=== PATIENT | female | born 1945 | race Caucasian/White ===

== ENCOUNTER → 2016-06-09 | Outpatient (CLI) | payer OTHER ==
[~2016-06-09] MED LIST: ATOR-24 PO; CETI10TA84 PO; CHOL2000 PO; CYAN10005 PO; INSDGI SC; INSUINJ14 SQ; LISI-725 PO; MAGN400T6 PO; METO1TAB31 PO; NXM/40 PO; RALO60TA12 PO
[2016-06-09 12:50] LABS: ALT/SGPT 27 U/L (12-78); BLOOD UREA NITROGEN 11 mg/dl (7-18); BUN/CREATININE RATIO 16.2 (10-20); CALCIUM 8.7 mg/dl (8.5-10.1); CARBON DIOXIDE 25 mmol/L (21-32); CHLORIDE 106 mmol/L (98-107); CREATININE 0.69 mg/dl (0.60-1.20); GLUCOSE 97 mg/dl (70-99); POTASSIUM 3.9 mmol/L (3.5-5.1); SODIUM 143 mmol/L (136-145)
[2016-06-09 12:54] LABS: ALB/GLOB RATIO 0.9 (0.9-2); ALKALINE PHOSPHATASE 92 U/L (45-117); AST/SGOT 20 U/L (15-37)
[2016-06-09 13:00] LABS: ESTIMATED AVERAGE GLUCOSE 197 mg/dl; HA1C FLAG Normal (Normal)
== END | disposition home or self-care (01) ==
LOC: C.LABPVFM 08:32
PROVIDERS: ATTEND Family Medicine
DX: E11.9 Type 2 diabetes mellitus without complications (principal); I10 Essential (primary) hypertension; K21.9 Gastro-esophageal reflux disease without esophagitis; R19.7 Diarrhea, unspecified; E78.5 Hyperlipidemia, unspecified; Z11.59 Encounter for screening for other viral diseases

== ENCOUNTER → 2016-09-07 | Outpatient (CLI) | payer OTHER ==
[~2016-09-07] MED LIST changes: +METO-478 PO; -METO1TAB31 PO; -RALO60TA12 PO; +RALO60TA30 PO
--- NOTE | 2016-09-08 12:46 | MAMMOGRAPHY REPORT ---
BILATERAL DIGITAL SCREENING MAMMOGRAM WITH CAD: 09/07/2016 CLINICAL HISTORY: Routine screening. Patient has no complaints. TECHNIQUE: Bilateral CC and MLO views were obtained. Current study was also evaluated with a Comput er Aided Detection (CAD) system. COMPARISON: Comparison is made to exams dated: 09/04/2015 mammogram, 06/11/2014 mammogram, 06/08/2013 mamm ogram, 06/10/2012 mammogram, 06/07/2012 mammogram, and 06/05/2011 mammogram - [facility]. BREAST COMPOSITION: There are scattered areas of fibroglandular density in both breasts. FINDINGS: There are stable scattered round and rim calcifications in the breasts. No suspicious mass , architectural distortion or cluster of microcalcifications is seen. IMPRESSION: ACR BI-RADS CATEGORY 1: NEGATIVE There is no mammographic evidence of malignancy. A 1 year screening mammogram is recommended. The pa tient will receive written notification of the results. Approximately 10% of breast cancers are not detected with mammography. A negative mammographic report should not delay biopsy if a clinically suggestive mass is present. Reanna Mills M.D. ay/:09/07/2016 15:57:58 [employer]: Farrah STANTON(Leda)(Nasir), [facility] letter sent: Normal 1/2 BI-RADS Code: ACR BI-RADS Category 1: Negative
== END | disposition home or self-care (01) ==
LOC: C.MAMM 10:15
PROVIDERS: ATTEND Family Medicine
DX: Z12.31 Encounter for screening mammogram for malignant neoplasm of breast (principal)

== ENCOUNTER → 2016-12-01 | Outpatient (CLI) | payer OTHER ==
[~2016-12-01] MED LIST changes: -METO-478 PO; +METO1TAB31 PO; +RALO60TA12 PO; -RALO60TA30 PO
[2016-12-01 13:09] LABS: ESTIMATED AVERAGE GLUCOSE 209 mg/dl; HA1C FLAG Normal (Normal)
[2016-12-01 13:23] LABS: ALT/SGPT 27 U/L (12-78); AST/SGOT 24 U/L (15-37); BLOOD UREA NITROGEN 11 mg/dl (7-18); BUN/CREATININE RATIO 15.4 (10-20); CALCIUM 8.8 mg/dl (8.5-10.1); CARBON DIOXIDE 27 mmol/L (21-32); CHLORIDE 108 mmol/L (98-107); CREATININE 0.71 mg/dl (0.60-1.20); GLUCOSE 124 mg/dl (70-99); POTASSIUM 4.2 mmol/L (3.5-5.1); SODIUM 141 mmol/L (136-145)
[2016-12-01 13:28] LABS: ALB/GLOB RATIO 0.8 (0.9-2); ALKALINE PHOSPHATASE 87 U/L (45-117); CHOLESTEROL/HDL RATIO 1.9
== END | disposition home or self-care (01) ==
LOC: C.LABPVFM 08:49
PROVIDERS: ATTEND Family Medicine
DX: E11.9 Type 2 diabetes mellitus without complications (principal); I10 Essential (primary) hypertension; E78.5 Hyperlipidemia, unspecified; K21.9 Gastro-esophageal reflux disease without esophagitis; E55.9 Vitamin D deficiency, unspecified; E83.42 Hypomagnesemia

== ENCOUNTER → 2017-04-27 | Outpatient (CLI) | payer OTHER ==
[~2017-04-27] MED LIST changes: +METO-478 PO; -METO1TAB31 PO; -RALO60TA12 PO; +RALO60TA30 PO
[2017-04-27 12:55] LABS: HEMOGLOBIN A1C 9.1 % (4.5-5.6)
[2017-04-27 13:31] LABS: ALBUMIN 3.6 gm/dl (3.4-5.0); ALT/SGPT 31 U/L (12-78); BLOOD UREA NITROGEN 13 mg/dl (7-18); CALCIUM 9.5 mg/dl (8.5-10.1); CARBON DIOXIDE 27 mmol/L (21-32); CREATININE 0.73 mg/dl (0.60-1.20); GLUCOSE 119 mg/dl (70-99); POTASSIUM 4.1 mmol/L (3.5-5.1); SODIUM 140 mmol/L (136-145)
[2017-04-27 13:34] LABS: ALKALINE PHOSPHATASE 85 U/L (45-117); AST/SGOT 29 U/L (15-37); TOTAL PROTEIN 7.3 gm/dl (6.4-8.2)
== END | disposition home or self-care (01) ==
LOC: C.LABPVFM 08:31
PROVIDERS: ATTEND Family Medicine
DX: E11.9 Type 2 diabetes mellitus without complications (principal); I10 Essential (primary) hypertension; E78.5 Hyperlipidemia, unspecified; K52.9 Noninfective gastroenteritis and colitis, unspecified; Z79.4 Long term (current) use of insulin; M81.0 Age-related osteoporosis without current pathological fracture; E66.9 Obesity, unspecified; Z68.35 Body mass index [BMI] 35.0-35.9, adult

== ENCOUNTER → 2017-05-03 | Outpatient (CLI) | payer OTHER ==
[2017-05-03 15:07] LABS: CREATININE RANDOM URINE 55.3 mg/dl
== END | disposition home or self-care (01) ==
LOC: C.LABPVFM 11:12
PROVIDERS: ATTEND Nurse Practitioner Adult Health
DX: E11.65 Type 2 diabetes mellitus with hyperglycemia (principal); M81.0 Age-related osteoporosis without current pathological fracture; I10 Essential (primary) hypertension; E66.9 Obesity, unspecified; K52.9 Noninfective gastroenteritis and colitis, unspecified

== ENCOUNTER 2017-06-08 09:19 | Inpatient (IN) | payer OTHER ==
[~2017-06-08] VITALS: Ht 160 cm; Wt 90.5 kg
[2017-06-08] MEDS ORDERED: HYDROCODONE/ACETAMIN 5/325MG TAB PO STA ×2 (09:42→14:02)
[2017-06-08 10:14] LABS: BASO % 0.1 %; BASO ABS # 0.02 K/uL (0-0.2); HEMOGLOBIN 11.8 g/dL (12.0-16.0); IG# 0.09 K/uL (0.00-0.02); LYMPH % 4.7 %; LYMPH ABS # 0.97 K/uL (1.2-3.4); MEAN CELL VOLUME 86.7 fL (80-100); MEAN CORPUSCULAR HEMOGLOBIN 28.4 pg (25-34); MEAN CORPUSCULAR HGB CONC 32.8 g/dl (32-36); MEAN PLATELET VOLUME 9.6 fL (7.4-10.4); MONO % 5.4 %; NEUT % 89.4 %; NEUT ABS # 18.26 K/uL (1.4-6.5); PLATELET COUNT 319 K/uL (130-400); RED CELL DISTRIBUTION WIDTH CV 16.2 % (11.5-14.5); RED CELL DISTRIBUTION WIDTH SD 51.3 fL (36.4-46.3); WHITE BLOOD COUNT 20.44 K/uL (4.8-10.8)
[2017-06-08] MEDS ORDERED: NVLG SQ (10:26)
[2017-06-08] MEDS ORDERED: COLE1TAB PO (10:26)
[2017-06-08] MEDS ORDERED: METF-384 PO (10:26)
[2017-06-08] MEDS ORDERED: INSU1INJ33 SQ (10:26)
[2017-06-08] MEDS ORDERED: VITACAP26 PO (10:26)
[2017-06-08 10:28] LABS: PTT PATIENT 26.8 SECONDS (21.0-31.0)
--- NOTE | 2017-06-08 10:28 | DIAGNOSTIC IMAGING REPORT ---
L KNEE 1 OR 2 VIEWS ROUTINE, R KNEE 1 OR 2 VIEWS ROUTINE HISTORY: 72 years-old Female knee pain, no trauma acute bilateral knee pain without reported trauma COMPARISON: None available TECHNIQUE: 2 views of the bilateral knees for a total of 4 images FINDINGS: LEFT: Left knee arthroplasty in satisfactory positioning. The bones appear mildly demineralized. Soft tissue calcifications are noted about the knee. Small knee joint effusion. No acute fracture or subluxation. RIGHT: Postoperative changes compatible with placement of a total knee arthroplasty with patellar resurfacing. The bones appear mildly demineralized. No evidence of hardware complication. Tardv-se-zrhsvzgs joint effusion. No acute fracture or subluxation. IMPRESSION: 1. Bilateral knee arthroplasties without evidence of malalignment or complication. 2. Osteopenic appearance of the bones. 3. Small left and emjvy-yh-dcidtaeo right knee joint effusions. The above report was generated using voice recognition software. It may contain grammatical, syntax or spelling errors. Electronically signed by: Link Richard M.D. 06/08/2017 10:26 AM Dictated Date/Time: 06/08/2017 10:24 AM
--- NOTE | 2017-06-08 10:28 | DIAGNOSTIC IMAGING REPORT ---
L KNEE 1 OR 2 VIEWS ROUTINE, R KNEE 1 OR 2 VIEWS ROUTINE HISTORY: 72 years-old Female knee pain, no trauma acute bilateral knee pain without reported trauma COMPARISON: None available TECHNIQUE: 2 views of the bilateral knees for a total of 4 images FINDINGS: LEFT: Left knee arthroplasty in satisfactory positioning. The bones appear mildly demineralized. Soft tissue calcifications are noted about the knee. Small knee joint effusion. No acute fracture or subluxation. RIGHT: Postoperative changes compatible with placement of a total knee arthroplasty with patellar resurfacing. The bones appear mildly demineralized. No evidence of hardware complication. Dvhpr-jc-qsenfghr joint effusion. No acute fracture or subluxation. IMPRESSION: 1. Bilateral knee arthroplasties without evidence of malalignment or complication. 2. Osteopenic appearance of the bones. 3. Small left and xgdeg-bt-lnucuswf right knee joint effusions. The above report was generated using voice recognition software. It may contain grammatical, syntax or spelling errors. Electronically signed by: Link Richard M.D. 06/08/2017 10:26 AM Dictated Date/Time: 06/08/2017 10:24 AM
[2017-06-08 10:36] LABS: ALBUMIN 3.4 gm/dl (3.4-5.0); ALT/SGPT 24 U/L (12-78); AST/SGOT 17 U/L (15-37); BLOOD UREA NITROGEN 20 mg/dl (7-18); CALCIUM 8.9 mg/dl (8.5-10.1); CARBON DIOXIDE 18 mmol/L (21-32); CREATININE 0.93 mg/dl (0.60-1.20); GLUCOSE 293 mg/dl (70-99); LIPASE 80 U/L (73-393); SODIUM 136 mmol/L (136-145)
[2017-06-08 10:45] LABS: ALKALINE PHOSPHATASE 83 U/L (45-117); TOTAL PROTEIN 7.7 gm/dl (6.4-8.2)
--- NOTE | 2017-06-08 11:10 | EMERGENCY ROOM VISIT NOTE ---
History Report prepared by Munira: Jyoti Santiago Under the Supervision of: Dr. Simone Chen M.D. First contact with patient: 09:35 Chief Complaint: KNEEPAIN Stated Complaint: KNEE PAIN History of Present Illness The patient is a 72 year old female who presents to the Emergency Room with complaints of persistent knee pain since last night. She rates her discomfort as a 10/10 in severity. She is unable to ambulate because of pain. She reports for the past 1 week, she has experienced generalized weakness. Last night while she was making dinner, both of her knees gave out. She states "they hurt like the devil", but she did not actually fall. She notes she has undergone bilateral knee replacement in the past, by Dr. Hay, but states "I've never had any problems". She states both of her knees feel "warm and swollen". The patient admits to some recent arm and shoulder pain for the past few weeks and states they are bothering her now. Her PCP is Dr. Lowery at [facility]. The patient denies any recent LOC, headache, fevers, chills, diaphoresis , visual changes, neck pain, chest pain, breathing difficulties, nausea, vomiting, abdominal pain, back pain, melena, hematochezia, urinary symptoms, numbness, lymphadenopathy, rash, or other complaints. Source of History: patient Onset: last night Position: knee (bilateral) Symptom Intensity: 10/10 Timing: other (persistent) Modifying Factors (Worsening): movement (ambulation) Associated Symptoms: + weakness Review of Systems See HPI for pertinent positives and negatives. A total of ten systems were reviewed and were otherwise negative. Past Medical & Surgical Medical Problems: (1) Diabetes (2) Septic joint of left knee joint Surgical Problems: (1) S/P cholecystectomy (2) S/P hernia repair (3) S/P hysterectomy (4) S/P knee replacement Social History Smoking Status: Never Smoker Alcohol Use: occasionally Drug Use: none Marital Status: Housing Status: lives with family Occupation Status: retired Current/Historical Medications Scheduled Atorvastatin (Lipitor), 40 MG PO HS Cetirizine (Zyrtec), 10 MG PO QPM Cholecalciferol (Vitamin D3), 1 CAP PO QAM Colestipol Hcl (Colestid), 1 GM PO BID Cyanocobalamin (Vitamin B-12), 1,000 MCG PO QAM Esomeprazole Magnesium (Nexium), 40 MG PO DAILY Insulin Aspart (Novolog), UNITS SQ TIDM Insulin Degludec (Tresiba Flextouch), 70 UNITS SQ HS Lisinopril (Zestril), 20 MG PO QAM Metformin Hcl (Glucophage), 1,000 MG PO BID Metoprolol Succinate (Toprol Xl), 25 MG PO QAM Raloxifene Hcl (Evista), 60 MG PO QAM Vitamins C & E (Vitamin C), 1 CAP PO DAILY Allergies Coded Allergies: Latex1 -Allergic Contact Dermititis (Verified Allergy, Unknown, ITCHING, RASH, 06/08/17) Penicillins (Verified Adverse Reaction, Unknown, STOMACH PAINS, 06/08/17) Physical Exam Vital Signs Date Time Temp Pulse Resp B/P (MAP) Pulse Ox O2 Delivery O2 Flow Rate FiO2 06/08/17 13:15 85 06/08/17 12:57 86 18 131/56 96 Room Air Manual 06/08/17 11:19 37.0 78 20 104/48 94 Room Air 06/08/17 10:07 89 18 108/67 95 Room Air 06/08/17 10:06 95 Nasal Cannula 06/08/17 09:58 91 06/08/17 09:25 37.7 92 20 128/56 97 Room Air Physical Exam GENERAL: Awake, alert, well-appearing, in no distress HENT: Normocephalic, atraumatic. Oropharynx unremarkable. EYES: Normal conjunctiva. Sclera non-icteric. NECK: Supple. No nuchal rigidity. FROM. No masses. RESPIRATORY: Clear to auscultation. No wheezes. CARDIAC: Normal rate. Normal rhythm. No murmurs. No rubs. Extremities warm and well perfused. Pulses equal. No JVD. GI: Soft, non-distended. No tenderness to palpation. No rebound or guarding. No masses. RECTAL: Deferred. MUSCULOSKELETAL: Atraumatic. Chest examination reveals no tenderness. The back is symmetrical on inspection without obvious abnormality. There is no CVA tenderness to palpation. No joint edema. LOWER EXTREMITIES: ROM of bilateral knees is limited secondary to pain. Mild tenderness, mild swelling of the left knee, no erythema or warmth. Calves are equal size bilaterally and non-tender. No discoloration. NEURO: Normal sensorium. No sensory or motor deficits noted. SKIN: No rash or jaundice noted. Medical Decision & Procedures ER Provider Diagnostic Interpretation: Radiology results as stated below per my review and radiologist interpretation: L KNEE 1 OR 2 VIEWS ROUTINE, R KNEE 1 OR 2 VIEWS ROUTINE HISTORY: 72 years-old Female knee pain, no trauma acute bilateral knee pain without reported trauma COMPARISON: None available TECHNIQUE: 2 views of the bilateral knees for a total of 4 images FINDINGS: LEFT: Left knee arthroplasty in satisfactory positioning. The bones appear mildly demineralized. Soft tissue calcifications are noted about the knee. Small knee joint effusion. No acute fracture or subluxation. RIGHT: Postoperative changes compatible with placement of a total knee arthroplasty with patellar resurfacing. The bones appear mildly demineralized. No evidence of hardware complication. Dcitk-or-gjlcyamr joint effusion. No acute fracture or subluxation. IMPRESSION: 1. Bilateral knee arthroplasties without evidence of malalignment or complication. 2. Osteopenic appearance of the bones. 3. Small left and wwrdh-re-twjjglmy right knee joint effusions. The above report was generated using voice recognition software. It may contain grammatical, syntax or spelling errors. Electronically signed by: Link Richard M.D. 06/08/2017 10:26 AM Laboratory Results 06/08/17 10:00 Red Blood Count 4.15, Mean Corpuscular Volume 86.7, Mean Corpuscular Hemoglobin 28.4, Mean Corpuscular Hemoglobin Concent 32.8, Mean Platelet Volume 9.6, Neutrophils (%) (Auto) 89.4, Lymphocytes (%) (Auto) 4.7, Monocytes (%) (Auto) 5.4, Eosinophils (%) (Auto) 0.0, Basophils (%) (Auto) 0.1, Neutrophils # (Auto) 18.26, Lymphocytes # (Auto) 0.97, Monocytes # (Auto) 1.10, Eosinophils # (Auto) 0.00, Basophils # (Auto) 0.02 06/08/17 10:00 Test 06/08/17 10:00 06/08/17 11:01 06/08/17 12:37 White Blood Count 20.44 K/uL (4.8-10.8) Red Blood Count 4.15 M/uL (4.2-5.4) Hemoglobin 11.8 g/dL (12.0-16.0) Hematocrit 36.0 % (37-47) Mean Corpuscular Volume 86.7 fL (80-100) Mean Corpuscular Hemoglobin 28.4 pg (25-34) Mean Corpuscular Hemoglobin Concent 32.8 g/dl (32-36) Platelet Count 319 K/uL (130-400) Mean Platelet Volume 9.6 fL (7.4-10.4) Neutrophils (%) (Auto) 89.4 % Lymphocytes (%) (Auto) 4.7 % Monocytes (%) (Auto) 5.4 % Eosinophils (%) (Auto) 0.0 % Basophils (%) (Auto) 0.1 % Neutrophils # (Auto) 18.26 K/uL (1.4-6.5) Lymphocytes # (Auto) 0.97 K/uL (1.2-3.4) Monocytes # (Auto) 1.10 K/uL (0.11-0.59) Eosinophils # (Auto) 0.00 K/uL (0-0.5) Basophils # (Auto) 0.02 K/uL (0-0.2) RDW Standard Deviation 51.3 fL (36.4-46.3) RDW Coefficient of Variation 16.2 % (11.5-14.5) Immature Granulocyte % (Auto) 0.4 % Immature Granulocyte # (Auto) 0.09 K/uL (0.00-0.02) Erythrocyte Sedimentation Rate 67 mm/hr (0-21) Prothrombin Time 10.7 SECONDS (9.0-12.0) Prothromb Time International Ratio 1.0 (0.9-1.1) Activated Partial Thromboplast Time 26.8 SECONDS (21.0-31.0) Partial Thromboplastin Ratio 1.0 Anion Gap 12.0 mmol/L (3-11) Est Creatinine Clear Calc Drug Dose 60.0 ml/min Estimated GFR () 71.7 Estimated GFR (Non- 61.8 BUN/Creatinine Ratio 21.3 (10-20) Calcium Level 8.9 mg/dl (8.5-10.1) Magnesium Level 1.6 mg/dl (1.8-2.4) Total Bilirubin 1.0 mg/dl (0.2-1) Direct Bilirubin 0.3 mg/dl (0-0.2) Aspartate Amino Transf (AST/SGOT) 17 U/L (15-37) Alanine Aminotransferase (ALT/SGPT) 24 U/L (12-78) Alkaline Phosphatase 83 U/L (45-117) Troponin I < 0.015 ng/ml (0-0.045) C-Reactive Protein 13.70 mg/dl (0-0.29) Total Protein 7.7 gm/dl (6.4-8.2) Albumin 3.4 gm/dl (3.4-5.0) Lipase 80 U/L (73-393) Thyroid Stimulating Hormone (TSH) 1.050 uIu/ml (0.300-4.500) Lyme Disease IgG Antibody NEG (NEG) Lyme Disease IgM Antibody NEG (NEG) Urine Color YELLOW Urine Appearance CLEAR (CLEAR) Urine pH 5.0 (4.5-7.5) Urine Specific [place] 1.017 (1.000-1.030) Urine Protein NEG (NEG) Urine Glucose (UA) 2+ (NEG) Urine Ketones TRACE (NEG) Urine Occult Blood NEG (NEG) Urine Nitrite NEG (NEG) Urine Bilirubin NEG (NEG) Urine Urobilinogen NEG (NEG) Urine Leukocyte Esterase TRACE (NEG) Urine WBC (Auto) 1-5 /hpf (0-5) Urine RBC (Auto) 0-4 /hpf (0-4) Urine Hyaline Casts (Auto) 1-5 /lpf (0-5) Urine Epithelial Cells (Auto) 20-30 /lpf (0-5) Urine Bacteria (Auto) NEG (NEG) Synovial Fluid Source KNEE Synovial Fluid Color YELLOW Synovial Fluid Appearance TURBID Synovial Fluid WBC 29974 /uL (0-200) Synovial Fluid RBC 89849 /uL Synovial Fluid Polynuclear WBCs % 77.1 % Synovial Fluid Mononuclear WBCs % 22.9 % Laboratory results reviewed by me Medications Administered Medications (Trade) Dose Ordered Sig/Cassidy Route Start Time Stop Time Status Last Admin Dose Admin Acetaminophen/ Hydrocodone Bitart ([place] 5/325 Tab) 1 tab NOW STAT PO 06/08/17 09:42 06/08/17 09:45 DC 06/08/17 10:05 1 TAB ECG Per My Interpretation Indication: weakness Rate (beats per minute): 87 Rhythm: normal sinus Findings: LBBB, no acute ischemic change, no ectopy Change: no significant change (LBBB is old, no change from EKG on 05/08/15) Change: Patient's electrocardiogram was interpreted by me. ED Course 0939: The patient was evaluated in room B9. A complete history and physical exam was performed.\\ 0942: [place] 5/325 mg 1 tab PO. 1155: I discussed the patients case with Dr. Mantilla [facility]. He is going to look into the case and call me back. 1250: I reevaluated the patient. She is feeling well. She was evaluated by Dr. Hay and he aspirated her left knee. The patient will be further evaluated. Medical Decision Triage Nursing notes reviewed. The patient's presentation and history were concerning for weakness and joint pain. Etiologies such as osteoarthritis, metabolic, infection, Lyme disease, electrolyte abnormalities, cardiac sources, intracerebral event, toxicologic, neurologic, as well as others were entertained. The patient was evaluated. She was complaining of pain and has limited range of motion bilaterally. She had no inciting event. She did not have any redness. She did have a mild elevation of her temperature but was not quite febrile. Blood work was obtained. Urinalysis unremarkable. Imaging was performed. She feels found to have a significant leukocytosis and elevated inflammatory markers. X-ray imaging was rather unremarkable. Consultation was made with orthopedics due to concerns about infection. The patient had her left knee aspirated by Dr. Hay. Findings are concerning for infection. She had close to 100,000 white blood cells. The patient was given additional oral [place]. Orthopedics admitted her for further management. Medication Reconcilliation Current Medication List: was personally reviewed by me Blood Pressure Screening Patient's blood pressure: Low blood pressure Consults Time Called: 1150 Consulting Physician: Dr. Mantilla [facility] Returned Call: [phone] I discussed the patients case with Dr. Mantilla [facility]. He is going to look into the case and call me back. Impression Primary Impression: Septic arthritis Additional Impressions: Knee pain Leukocytosis Scribe Attestation The scribe's documentation has been prepared under my direction and personally reviewed by me in its entirety. I confirm that the note above accurately reflects all work, treatment, procedures, and medical decision making performed by me. Departure Information Dispostion Being Evaluated By Surgeon Referrals Amber Brewer M.D. (PCP) Patient Instructions My [facility] Problem Qualifiers
--- NOTE | 2017-06-08 13:18 | HISTORY & PHYSICAL EXAMINATION ---
DATE OF ADMISSION: 06/08/2017 CHIEF COMPLAINT: Left knee pain. HISTORY OF PRESENT ILLNESS: The patient was in her usual state of health until her knee gave out while cooking dinner last evening. She had knee replacements done by myself over 17 years ago and has not had any problems with these since. She denies any fever, but says her knee feels warm and swollen and is quite painful. At first, she felt both knees were painful, but now the pain is primarily focused on the left knee. PAST MEDICAL HISTORY: Significant for diabetes. PAST SURGICAL HISTORY: Cholecystectomy, herniorrhaphy, hysterectomy and knee replacements. SOCIAL HISTORY: Denies alcohol, tobacco use of significance. MEDICATIONS: Lipitor 40 mg p.o. at bedtime, Zyrtec 10 mg p.o. q.p.m., vitamin D3, Colestid 1 gram p.o. b.i.d., vitamin B12, Nexium 40 mg p.o. daily, insulin NovoLog and insulin degludec 70 units subQ at bedtime, lisinopril 20 mg p.o. daily, metformin 1000 mg p.o. b.i.d., metoprolol succinate 25 mg p.o. q.a.m., Evista 60 mg p.o. q.a.m. and vitamin C. ASSESSMENT: Suspected septic left knee. PLAN: Aspiration in the Emergency Department, admission, place on IV vancomycin and possible incision and drainage with poly exchange tomorrow.
[2017-06-08] MEDS ORDERED: METOCLOPRAMIDE HCL INJ 5 MG/ML 2 ML VIAL IV PRN (13:30)
[2017-06-08] MEDS ORDERED: ONDANSETRON INJ 2 MG/ML 2 ML VIAL IV PRN (13:30)
[2017-06-08] MEDS ORDERED: ALUMINUM/MAGNESIUM SUSP 30 ML UDC PO PRN (13:30)
[2017-06-08] MEDS ORDERED: VANCOMYCIN CONSULT ACTIVE PRN (13:30)
[2017-06-08] MEDS ORDERED: ZOLPIDEM TARTRATE 5 MG TAB PO PRN (13:30)
[2017-06-08 14:25] VITALS: BP 126/72; PULSE 89; TEMP 36.8; O2SAT 97
[2017-06-08 14:30] VITALS: BP 126/72; PULSE 89; TEMP 36.8; Ht 160 cm; Wt 90.5 kg
[2017-06-08] MEDS: SODIUM CHLORIDE 0.9% 1000ML 1,000 ML IV SCH (14:34)
[2017-06-08] MEDS ORDERED: VANCOMYCIN IV 2,250 MG in SODIUM CHLORIDE 0.9% 500ML 500 ML IV SCH (15:00)
--- NOTE | 2017-06-08 15:05 | Medical Consult ---
Consultation Date of Consultation: Jun 08, 2017. Attending Physician: Matthew Hay M.D. Reason for Consultation: Septic L TKA History of Present Illness Patient is a 72 y/o female, with PMHx of HTN, HLD, T2DM, osteoporosis, chronic diarrhea, and GERD, who was admitted by orthopedics, Dr. Hay for septic L TKA. Patient was standing at her counter yesterday cooking dinner when she started to experience L knee discomfort and swelling/warmth. Knee was aspirated in ED by Dr. Hay- cultures pending. Possible I&D tomorrow w/ poly exchange. Patient denies any fever, chills, sweats, lightheadedness, dizziness, vision changes, CP, palpitations, edema, SOB, wheezing, cough, abdominal pain, nausea, vomiting, diarrhea, urinary symptoms, melena, numbness/tingling, weakness, anxiety/depression, active bleeding, or new skin discoloration/changes. Past Medical/Surgical History Medical Problems: HTN HLD T2DM GERD chronic diarrhea osteoporosis Surgical History: s/p bilateral knee replacement hysterectomy cholecystectomy trigger finger hernia repair Family History DM Social History Smoking Status: Never Smoker Drug Use: none Marital Status: Housing Status: lives with family Occupation Status: retired Allergies Coded Allergies: Latex1 -Allergic Contact Dermititis (Verified Allergy, Unknown, ITCHING, RASH, 06/08/17) Penicillins (Verified Adverse Reaction, Unknown, STOMACH PAINS, 06/08/17) Home Medications Reported Home Medications Medications Dose Route/Sig Max Daily Dose Days Date Category Dose Instructions Colestid (Colestipol Hcl) 1 Gm Tab 1 Gm PO BID 06/08/17 Reported Vitamin C (Vitamins C & E) 1 Cap Cap 1 Cap PO DAILY 06/08/17 Reported Glucophage (Metformin Hcl) 1,000 Mg Tab 1,000 Mg PO BID 06/08/17 Reported Tresiba Flextouch (Insulin Degludec) 100 Unit/Ml Inj 70 Units SQ HS 06/08/17 Reported Novolog (Insulin Aspart) 100 Units/Ml Inj Units SQ TIDM 06/08/17 Reported SLIDING SCALE Zyrtec (Cetirizine HCl) 10 Mg Tab 10 Mg PO QPM 05/08/15 Reported Vitamin D3 (Cholecalciferol) 2,000 Unit Cap 1 Cap PO QAM 90 05/08/15 Reported Lipitor (Atorvastatin Calcium) 40 Mg Tab 40 Mg PO HS 05/08/15 Reported Vitamin B-12 (Cyanocobalamin) 1,000 Mcg Tab 1,000 Mcg PO QAM 10/17/13 Reported Toprol Xl (Metoprolol Succinate) 25 Mg Tab 25 Mg PO QAM 04/09/12 Reported Evista (Raloxifene Hcl) 60 Mg Tab 60 Mg PO QAM 04/09/12 Reported Zestril (Lisinopril) 20 Mg Tab 20 Mg PO QAM 01/27/09 Reported Nexium (Esomeprazole Magnesium) 40 Mg Capcr 40 Mg PO DAILY 01/27/09 Reported Current Inpatient Medications Current Inpatient Medications Medications (Trade) Dose Ordered Sig/Cassidy Route Start Time Stop Time Status Last Admin Dose Admin Diphenhydramine HCl (Benadryl Cap) 25 mg Q8 PRN PO 06/08/17 13:30 07/08/17 13:29 Zolpidem Tartrate (Ambien Tab) 5 mg HSZ PRN PO 06/08/17 13:30 07/08/17 13:29 Metoclopramide HCl (Reglan Inj) 10 mg Q6H PRN IV 06/08/17 13:30 07/08/17 13:29 Ondansetron HCl (Zofran Inj) 4 mg Q6H PRN IV 06/08/17 13:30 07/08/17 13:29 Ferrous Sulfate (Feosol Tab) 325 mg TIDM PO 06/08/17 17:45 07/08/17 17:44 Al Hydroxide/Mg Hydroxide (Maalox Susp) 30 ml Q6H PRN PO 06/08/17 13:30 07/08/17 13:29 Docusate Sodium (coLACE CAP) 100 mg BID PO 06/08/17 21:00 07/08/17 20:59 Ranitidine HCl (zANTac TAB) 150 mg BID PO 06/08/17 21:00 07/08/17 20:59 Sodium Chloride 1,000 ml @ 100 mls/hr Q10H IV 06/08/17 14:30 07/08/17 14:29 06/08/17 14:34 100 MLS/HR Vancomycin HCl 1250 mg/Sodium Chloride 275 ml @ 125 mls/hr Q14H IV 06/09/17 03:00 07/20/17 02:59 UNV Miscellaneous Information (Consult) 1 ea UD PRN N/A 06/08/17 13:30 07/08/17 13:29 Vancomycin HCl 2250 mg/Sodium Chloride 545 ml @ 200 mls/hr TODAY@1500 IV 06/08/17 15:00 06/08/17 19:00 Physical Exam Date Time Temp Pulse Resp B/P (MAP) Pulse Ox O2 Delivery O2 Flow Rate FiO2 06/08/17 14:14 37.2 83 18 123/59 97 06/08/17 13:15 85 06/08/17 12:57 86 18 131/56 96 Room Air Manual 06/08/17 11:19 37.0 78 20 104/48 94 Room Air 06/08/17 10:07 89 18 108/67 95 Room Air 06/08/17 10:06 95 Nasal Cannula 06/08/17 09:58 91 06/08/17 09:25 37.7 92 20 128/56 97 Room Air General Appearance: no apparent distress, + obese Head: normocephalic, atraumatic Eyes: normal inspection, PERRL ENT: hearing grossly normal Neck: supple Respiratory/Chest: lungs clear, no respiratory distress, no accessory muscle use Cardiovascular: regular rate, rhythm Abdomen/GI: normal bowel sounds, non tender, soft Back: normal inspection Extremities/Musculoskelatal: no calf tenderness, no pedal edema, + pertinent finding (SCDs on) Neurologic/Psych: alert, normal mood/affect, oriented x 3 Skin: normal color, warm/dry, no rash Laboratory Results Last 24 Hours Test 06/08/17 10:00 06/08/17 11:01 06/08/17 12:37 White Blood Count 20.44 K/uL Red Blood Count 4.15 M/uL Hemoglobin 11.8 g/dL Hematocrit 36.0 % Mean Corpuscular Volume 86.7 fL Mean Corpuscular Hemoglobin 28.4 pg Mean Corpuscular Hemoglobin Concent 32.8 g/dl Platelet Count 319 K/uL Mean Platelet Volume 9.6 fL Neutrophils (%) (Auto) 89.4 % Lymphocytes (%) (Auto) 4.7 % Monocytes (%) (Auto) 5.4 % Eosinophils (%) (Auto) 0.0 % Basophils (%) (Auto) 0.1 % Neutrophils # (Auto) 18.26 K/uL Lymphocytes # (Auto) 0.97 K/uL Monocytes # (Auto) 1.10 K/uL Eosinophils # (Auto) 0.00 K/uL Basophils # (Auto) 0.02 K/uL RDW Standard Deviation 51.3 fL RDW Coefficient of Variation 16.2 % Immature Granulocyte % (Auto) 0.4 % Immature Granulocyte # (Auto) 0.09 K/uL Erythrocyte Sedimentation Rate 67 mm/hr Prothrombin Time 10.7 SECONDS Prothromb Time International Ratio 1.0 Activated Partial Thromboplast Time 26.8 SECONDS Partial Thromboplastin Ratio 1.0 Sodium Level 136 mmol/L Potassium Level 4.0 mmol/L Chloride Level 106 mmol/L Carbon Dioxide Level 18 mmol/L Anion Gap 12.0 mmol/L Blood Urea Nitrogen 20 mg/dl Creatinine 0.93 mg/dl Est Creatinine Clear Calc Drug Dose 60.0 ml/min Estimated GFR () 71.7 Estimated GFR (Non- 61.8 BUN/Creatinine Ratio 21.3 Random Glucose 293 mg/dl Calcium Level 8.9 mg/dl Magnesium Level 1.6 mg/dl Total Bilirubin 1.0 mg/dl Direct Bilirubin 0.3 mg/dl Aspartate Amino Transf (AST/SGOT) 17 U/L Alanine Aminotransferase (ALT/SGPT) 24 U/L Alkaline Phosphatase 83 U/L Troponin I < 0.015 ng/ml C-Reactive Protein 13.70 mg/dl Total Protein 7.7 gm/dl Albumin 3.4 gm/dl Lipase 80 U/L Thyroid Stimulating Hormone (TSH) 1.050 uIu/ml Lyme Disease IgG Antibody NEG Lyme Disease IgM Antibody NEG Urine Color YELLOW Urine Appearance CLEAR Urine pH 5.0 Urine Specific [place] 1.017 Urine Protein NEG Urine Glucose (UA) 2+ Urine Ketones TRACE Urine Occult Blood NEG Urine Nitrite NEG Urine Bilirubin NEG Urine Urobilinogen NEG Urine Leukocyte Esterase TRACE Urine WBC (Auto) 1-5 /hpf Urine RBC (Auto) 0-4 /hpf Urine Hyaline Casts (Auto) 1-5 /lpf Urine Epithelial Cells (Auto) 20-30 /lpf Urine Bacteria (Auto) NEG Synovial Fluid Source KNEE Synovial Fluid Color YELLOW Synovial Fluid Appearance TURBID Synovial Fluid WBC 66872 /uL Synovial Fluid RBC 99081 /uL Synovial Fluid Polynuclear WBCs % 77.1 % Synovial Fluid Mononuclear WBCs % 22.9 % Assessment & Plan Patient is a 72 y/o female, with PMHx of HTN, HLD, T2DM, osteoporosis, chronic diarrhea, and GERD, who was admitted by orthopedics, Dr. Hay for septic L TKA. Septic L TKA: - Admitted to med/surg on orthopedics service - s/p aspiration by Dr. Hay on 06/08- cultures pending. Possible I&D w/poly exchange on 06/09. - IV Vancomycin - ID consulted T2DM w/ hyperglycemia- hgbA1c 9.1% in 04/2017: - Hold Metformin while inpatient - Continue Tresiba 70 u SQ HS - Give Lantus 6 u x1 now for hyperglycemia - BSG ACHS and ISS HTN: Continue Lisinopril and Metoprolol HLD: Continue Lipitor Chronic diarrhea: Continue Colestid Osteoporosis: Continue Evista GERD: Continue Zantac + Nexium DVT prophylaxis: SCDs; chemical anticoagulation as per orthopedics Code status: LEVEL I, FULL Dispo: As per primary team Resident Physician Supervision Note: I was present with the CHIP Johnson during the history and exam. I discussed the case with the resident and agree with the findings and plan as documented in the note. Any exceptions or clarifications are listed here: 72 y/o F Hx HTN, HPL, DMII, osteoporosis, chronic diarrhea, GERD - admitted by orthopedics for septic L TKA. OE AAO x 3 S1,2 R CTAB NT, ND Inflammation of L knee is present P: L TKA infection - joint was aspirate - surgical debridement and possible hardware removal planned for AM - placed on Vanc HTN - cant cont Metoprolol - Hold Lisinopril AM if proceeds to OR HPL - cont Statin DM - SS + Lantus Documented By: Ryne Corbin
[2017-06-08] MEDS ORDERED: INSULIN GLARGINE SOLOSTAR 100 UNITS/ML 3 ML PEN SC ONE (15:15)
[2017-06-08] MEDS ORDERED: LANTUS PER UNIT CHARGE SQ ONE (15:30)
[2017-06-08] MEDS ORDERED: NURSING VERBAL MED ORDER ONE (15:45)
[2017-06-08] MEDS ORDERED: OXYCODONE HCL IR 5 MG TAB (IMMEDIATE RELEASE) PO PRN (16:00)
[2017-06-08] MEDS ORDERED: ACETAMINOPHEN 500 MG TAB PO PRN (16:00)
--- NOTE | 2017-06-08 17:38 | Pharmacy Progress Note ---
Pharmacy Abx Dose Short Note Date of Service Jun 08, 2017. Assessment & Plan Item Value Date Time White Blood Count 20.44 K/uL H 06/08/17 1000 Creatinine 0.93 mg/dl 06/08/17 1000 Est Creatinine Clear Calc Drug Dose 60.0 ml/min 06/08/17 1000 Urine Culture Received 06/08/17 1101 Urine , Clean Catch Pending Assessment 72 year old female receiving VANC-IV r/o septic L knee * Day # 1 of antimicrobial therapy. Plan Vancomycin * Estimated p'kinetics: Vd~0.7L/kg, Ke~0.0542hr-1, t1/2~12 hrs * LOADING DOSE: VANC 2250mg (~25mg/kg) IV x 1, then * MAINTENANCE DOSE:: VANC 1250mg (~14mg/kg) IV every 14 hours. * Goal trough level: 15 to 20 mcg/mL pending C&S * VANC Trough level @ Css prior to 06/10/17 0730 dose Pharmacy will continue to follow and will adjust dose/frequency as necessary. Thank you.
[2017-06-08] MEDS: INSULIN ASPART 100 UNITS/ML 3 ML PEN SC SCH ×2 (18:43→21:55)
[2017-06-08] MEDS: FERROUS SULFATE 325 MG TAB PO SCH (18:43)
[2017-06-08] MEDS: DOCUSATE SODIUM 100 MG CAP PO SCH (21:00)
[2017-06-08] MEDS: CETIRIZINE HCL 10 MG TAB PO SCH (21:54)
[2017-06-08] MEDS: ATORVASTATIN 40 MG TAB PO SCH (21:54)
[2017-06-08] MEDS: COLESTIPOL HCL 1 GM TAB PO SCH (21:54)
[2017-06-08] MEDS: RANITIDINE HCL 150 MG TAB PO SCH (21:54)
[2017-06-08] MEDS: INSULIN GLARGINE SC SCH (21:57)
[2017-06-08 23:14] VITALS: BP 97/59; PULSE 73; TEMP 36.7; O2SAT 96
[2017-06-08 23:40] VITALS: BP 110/57; O2SAT 96
[2017-06-09] VITALS (8 sets, daily range): BP systolic 135–148; BP diastolic 57–80; PULSE 60–81; TEMP 36.7–36.9; O2SAT 92–97
[2017-06-09] MEDS: SODIUM CHLORIDE 0.9% 1000ML 1,000 ML IV SCH ×2 (00:46→10:39)
[2017-06-09] MEDS: VANCOMYCIN IV 1,250 MG in SODIUM CHLORIDE 0.9% 250ML 250 ML IV SCH ×2 (04:02→18:25)
[2017-06-09 06:33] LABS: HEMATOCRIT 34.3 % (37-47); HEMOGLOBIN 10.6 g/dL (12.0-16.0); MEAN CELL VOLUME 88.9 fL (80-100); MEAN CORPUSCULAR HEMOGLOBIN 27.5 pg (25-34); MEAN CORPUSCULAR HGB CONC 30.9 g/dl (32-36); MEAN PLATELET VOLUME 9.8 fL (7.4-10.4); PLATELET COUNT 259 K/uL (130-400); RED CELL DISTRIBUTION WIDTH CV 16.4 % (11.5-14.5); RED CELL DISTRIBUTION WIDTH SD 53.3 fL (36.4-46.3); WHITE BLOOD COUNT 10.96 K/uL (4.8-10.8)
[2017-06-09 07:20] LABS: CALCIUM 8.2 mg/dl (8.5-10.1); CREATININE 0.59 mg/dl (0.60-1.20); POTASSIUM 3.8 mmol/L (3.5-5.1)
--- NOTE | 2017-06-09 07:55 | Family Medicine Progress Note ---
Progress Note Date of Service Jun 09, 2017. Subjective Pt evaluation today including: conversation w/ patient Found patient sitting comfortably, smiling. Says left knee is sore but otherwise doing well. Denies any other pains, SOB, orthopnea, V/D, or other acute concerns. Constitutional: No fever, No chills Respiratory: No cough, No shortness of breath Cardiovascular: No chest pain, No edema Abdomen: No pain, No nausea, No vomiting Musculoskeletal: + joint pain Medications Current Inpatient Medications Medications (Trade) Dose Ordered Sig/Cassidy Route Start Time Stop Time Status Last Admin Dose Admin Diphenhydramine HCl (Benadryl Cap) 25 mg Q8 PRN PO 06/08/17 13:30 07/08/17 13:29 Zolpidem Tartrate (Ambien Tab) 5 mg HSZ PRN PO 06/08/17 13:30 07/08/17 13:29 Metoclopramide HCl (Reglan Inj) 10 mg Q6H PRN IV 06/08/17 13:30 07/08/17 13:29 Ondansetron HCl (Zofran Inj) 4 mg Q6H PRN IV 06/08/17 13:30 07/08/17 13:29 Ferrous Sulfate (Feosol Tab) 325 mg TIDM PO 06/08/17 17:45 07/08/17 17:44 06/08/17 18:43 325 MG Al Hydroxide/Mg Hydroxide (Maalox Susp) 30 ml Q6H PRN PO 06/08/17 13:30 07/08/17 13:29 Docusate Sodium (coLACE CAP) 100 mg BID PO 06/08/17 21:00 07/08/17 20:59 Ranitidine HCl (zANTac TAB) 150 mg BID PO 06/08/17 21:00 07/08/17 20:59 06/08/17 21:54 150 MG Sodium Chloride 1,000 ml @ 100 mls/hr Q10H IV 06/08/17 14:30 07/08/17 14:29 06/09/17 00:46 100 MLS/HR Vancomycin HCl 1250 mg/Sodium Chloride 275 ml @ 125 mls/hr Q14H IV 06/09/17 04:00 07/20/17 03:59 06/09/17 04:02 125 MLS/HR Miscellaneous Information (Consult) 1 ea UD PRN N/A 06/08/17 13:30 07/08/17 13:29 Atorvastatin Calcium (Lipitor Tab) 40 mg HS PO 06/08/17 21:00 07/08/17 20:59 06/08/17 21:54 40 MG Cetirizine HCl (zyrTEC TAB) 10 mg QPM PO 06/08/17 21:00 07/08/17 20:59 06/08/17 21:54 10 MG Colestipol HCl (Colestid Tab) 1 gm BID@1000,2200 PO 06/08/17 22:00 07/08/17 21:59 06/08/17 21:54 1 GM Cyanocobalamin (Vitamin B-12 Tab) 1,000 mcg QAM PO 06/09/17 09:00 07/09/17 08:59 Metoprolol Succinate (Toprol Xl Tab) 25 mg QAM PO 06/09/17 09:00 07/09/17 08:59 Raloxifene HCl (Evista Tab) 60 mg QAM PO 06/09/17 09:00 07/09/17 08:59 Pantoprazole Sodium (Protonix Tab) 40 mg QAM PO 06/09/17 09:00 07/09/17 08:59 Insulin Glargine (Lantus Vial) 70 units HS SC 06/08/17 21:00 07/08/17 20:59 06/08/17 21:57 70 UNITS Insulin Aspart (novoLOG ASPART) SLIDING SCALE G... ACHS SC 06/08/17 17:15 07/08/17 17:14 06/08/17 21:55 4 UNITS Acetaminophen (Tylenol Tab) 1,000 mg Q8H PRN PO 06/08/17 16:00 07/08/17 15:59 Oxycodone HCl (Roxicodone Immediate Rel Tab) `1-2 tabs for pain 1 tab ... Q4H PRN PO 06/08/17 16:00 06/22/17 15:59 Objective Vital Signs Date Time Temp Pulse Resp B/P (MAP) Pulse Ox O2 Delivery O2 Flow Rate FiO2 06/08/17 23:40 96 Room Air 06/08/17 23:40 110/57 (74) 06/08/17 23:14 36.7 73 14 97/59 (72) 96 Room Air 06/08/17 16:00 Room Air 06/08/17 14:30 36.8 89 18 126/72 Room Air 06/08/17 14:30 Room Air 06/08/17 14:25 36.8 89 18 126/72 (90) 97 Room Air 06/08/17 14:14 37.2 83 18 123/59 97 06/08/17 13:15 85 06/08/17 12:57 86 18 131/56 96 Room Air Manual 06/08/17 11:19 37.0 78 20 104/48 94 Room Air 06/08/17 10:07 89 18 108/67 95 Room Air 06/08/17 10:06 95 Nasal Cannula 06/08/17 09:58 91 06/08/17 09:25 37.7 92 20 128/56 97 Room Air Physical Exam Notes: General Appearance: Awake, alert & oriented, comfortable in general, NAD. CV: +S1S2 RRR, no murmur. No peripheral edema. Pulm: Clear to auscultation throughout. Abdomen: +BS, soft, non-tender, non-distended. Extremities: No pedal edema or calf tenderness. Mild ttp over left knee but not overtly warm. Bilateral prior knee replacement incision scars. Neuro: No gross neuro deficits. Lines: Left hand PIV. Laboratory Results 06/09/17 06:16 06/09/17 06:16 Test 06/08/17 10:00 06/08/17 11:01 06/08/17 12:37 06/08/17 20:30 Immature Granulocyte % (Auto) 0.4 % White Blood Count 20.44 K/uL (4.8-10.8) Red Blood Count 4.15 M/uL (4.2-5.4) Hemoglobin 11.8 g/dL (12.0-16.0) Hematocrit 36.0 % (37-47) Mean Corpuscular Volume 86.7 fL (80-100) Mean Corpuscular Hemoglobin 28.4 pg (25-34) Mean Corpuscular Hemoglobin Concent 32.8 g/dl (32-36) Platelet Count 319 K/uL (130-400) Mean Platelet Volume 9.6 fL (7.4-10.4) Neutrophils (%) (Auto) 89.4 % Lymphocytes (%) (Auto) 4.7 % Monocytes (%) (Auto) 5.4 % Eosinophils (%) (Auto) 0.0 % Basophils (%) (Auto) 0.1 % Neutrophils # (Auto) 18.26 K/uL (1.4-6.5) Lymphocytes # (Auto) 0.97 K/uL (1.2-3.4) Monocytes # (Auto) 1.10 K/uL (0.11-0.59) Eosinophils # (Auto) 0.00 K/uL (0-0.5) Basophils # (Auto) 0.02 K/uL (0-0.2) Immature Granulocyte # (Auto) 0.09 K/uL (0.00-0.02) Erythrocyte Sedimentation Rate 67 mm/hr (0-21) Prothrombin Time 10.7 SECONDS (9.0-12.0) Prothromb Time International Ratio 1.0 (0.9-1.1) Activated Partial Thromboplast Time 26.8 SECONDS (21.0-31.0) Partial Thromboplastin Ratio 1.0 Magnesium Level 1.6 mg/dl (1.8-2.4) Total Bilirubin 1.0 mg/dl (0.2-1) Direct Bilirubin 0.3 mg/dl (0-0.2) Aspartate Amino Transf (AST/SGOT) 17 U/L (15-37) Alanine Aminotransferase (ALT/SGPT) 24 U/L (12-78) Alkaline Phosphatase 83 U/L (45-117) Troponin I < 0.015 ng/ml (0-0.045) C-Reactive Protein 13.70 mg/dl (0-0.29) Total Protein 7.7 gm/dl (6.4-8.2) Albumin 3.4 gm/dl (3.4-5.0) Lipase 80 U/L (73-393) Thyroid Stimulating Hormone (TSH) 1.050 uIu/ml (0.300-4.500) Lyme Disease IgG Antibody NEG (NEG) Lyme Disease IgM Antibody NEG (NEG) Urine Color YELLOW Urine Appearance CLEAR (CLEAR) Urine pH 5.0 (4.5-7.5) Urine Specific [place] 1.017 (1.000-1.030) Urine Protein NEG (NEG) Urine Glucose (UA) 2+ (NEG) Urine Ketones TRACE (NEG) Urine Occult Blood NEG (NEG) Urine Nitrite NEG (NEG) Urine Bilirubin NEG (NEG) Urine Urobilinogen NEG (NEG) Urine Leukocyte Esterase TRACE (NEG) Urine WBC (Auto) 1-5 /hpf (0-5) Urine RBC (Auto) 0-4 /hpf (0-4) Urine Hyaline Casts (Auto) 1-5 /lpf (0-5) Urine Epithelial Cells (Auto) 20-30 /lpf (0-5) Urine Bacteria (Auto) NEG (NEG) Synovial Fluid Source KNEE Synovial Fluid Color YELLOW Synovial Fluid Appearance TURBID Synovial Fluid WBC 47653 /uL (0-200) Synovial Fluid RBC 25124 /uL Synovial Fluid Polynuclear WBCs % 77.1 % Synovial Fluid Mononuclear WBCs % 22.9 % Synovial Fluid Crystals Bedside Glucose 264 mg/dl (70-90) Test 06/09/17 06:16 Red Blood Count 3.86 M/uL (4.2-5.4) Mean Corpuscular Volume 88.9 fL (80-100) Mean Corpuscular Hemoglobin 27.5 pg (25-34) Mean Corpuscular Hemoglobin Concent 30.9 g/dl (32-36) RDW Standard Deviation 53.3 fL (36.4-46.3) RDW Coefficient of Variation 16.4 % (11.5-14.5) Mean Platelet Volume 9.8 fL (7.4-10.4) Anion Gap 7.0 mmol/L (3-11) Est Creatinine Clear Calc Drug Dose 93.3 ml/min Estimated GFR () 106.9 Estimated GFR (Non- 92.2 BUN/Creatinine Ratio 22.7 (10-20) Calcium Level 8.2 mg/dl (8.5-10.1) Date/Time Source Procedure Growth Status 06/08/17 11:01 Urine , Clean Catch Urine Culture - Final MORE THAN THREE TYPES OF ORGANISMS NH... Complete Assessment and Plan 72 yo female admitted on [id number] to the orthopedics service for a septic left knee with prior left TKA. PMH: HTN, HLD, T2DM, osteoporosis, chronic diarrhea, and GERD Septic left artificial knee: Orthopedics service as primary. aspiration cultures pending. started vancomycin. ID consulted. Afebrile. Current WBC 11. CRP 13. ESR 67. - Pending procedures per ortho. - ID recommendations pending. - Suspect patient will need PICC access in the near future. DM type 2 with hyperglycemia: HbA1c was 9.1. Holding metformin as inpatient. Currently on novolog and lantus. Monitoring, particularly while NPO. HTN: On home Metoprolol XL 25. Held home Lisinopril today and for POD#1 to try to avoid orthostatic hypotension. HLD: On home Lipitor 40. 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 On home Colestid 1 gm BID. Osteoporosis: On home Evista 60. GERD: At home on nexium. Here on zantac 150 BID and protonix 40. Misc: 06Mar UCx negative (final). Lyme negative. Code status: Full code Diet: NPO this morning. Carb counting in general. DVT prophy: SCD's. Medication per ortho. PT/OT: Per ortho. Disbo: Per ortho (primary team). Resident Physician Supervision Note: I interviewed and examined the patient. Discussed with Dr. Corona and agree with findings and plan as documented in the note. Any exceptions or clarifications are listed here: None Patient is doing well she feels hungry awaiting surgical procedure on her knee infectious diseases recommended vancomycin for 6-8 weeks and pending further culture results patient has had reasonable blood pressure and glucose control as well as her medical issues screening questions prior to going to the OR revealed no concern for unstable angina or heart failure Vital signs show temperature 36 9 pulse 81 respiration rate 18 BP 142/80 cardiac exam is regular lungs are clear without wheezes or crackles abdomen normoactive bowel sounds and soft Continue intravenous vancomycin pending further culture results. As mentioned above we will hold lisinopril postop day 1 will continue metoprolol, as with her variable oral intake status will continue with a sliding scale occasionally using Lantus if need be Documented By: Garett Lam Resident Tracking Resident Involvement: Resident Care Provided Care Provided: Adult Hospital Medicine (inpatient)
[2017-06-09] MEDS: FERROUS SULFATE 325 MG TAB PO SCH ×2 (08:30→12:30)
[2017-06-09] MEDS: RANITIDINE HCL 150 MG TAB PO SCH ×2 (08:42→21:33)
[2017-06-09] MEDS: CYANOCOBALAMIN 500 MCG TAB (VIT B-12) PO SCH (08:43)
[2017-06-09] MEDS: COLESTIPOL HCL 1 GM TAB PO SCH ×2 (08:43→22:48)
[2017-06-09] MEDS: PANTOprazole SOD 40 MG TAB PO SCH (08:44)
[2017-06-09] MEDS: RALOXIFENE 60 MG TAB PO SCH (08:44)
[2017-06-09] MEDS: METOPROLOL SUCC 25MG EXT REL TAB PO SCH (08:44)
[2017-06-09] MEDS: DOCUSATE SODIUM 100 MG CAP PO SCH ×2 (08:45→21:32)
[2017-06-09] MEDS: INSULIN ASPART 100 UNITS/ML 3 ML PEN SC SCH ×4 (08:48→21:41)
[2017-06-09] MEDS ORDERED: LISINOPRIL 20 MG TAB PO SCH (09:00)
--- NOTE | 2017-06-09 10:22 | Medical Consult ---
Consultation Date of Consultation: Jun 09, 2017. Attending Physician: Matthew Hay M.D. Reason for Consultation: Septic left TKA History of Present Illness 72-year-old female in prior excellent health, status post left knee replacement 17 years ago, presented recently with sudden onset of left knee pain and swelling. Ultimately saw her orthopedic surgeon who aspirated knee with finding of evidence of infection with elevated white blood cell count. Cultures are pending. Exam for crystals negative. Patient has been started on vancomycin. Awaiting operative debridement and poly exchange. Denies any significant recent fever, skin infections, dental work, or any other recent problems. Pain in knee up to 7/10 in intensity. Past Medical/Surgical History Medical Problems: (1) Knee pain Status: Acute (2) Leukocytosis Status: Acute (3) Septic arthritis Status: Acute Medical Problems: (1) Diabetes (2) Septic joint of left knee joint Surgical Problems: (1) S/P cholecystectomy (2) S/P hernia repair (3) S/P hysterectomy (4) S/P knee replacement Family History Noncontributory Social History Smoking Status: Never Smoker Drug Use: none Marital Status: Housing Status: lives with family Occupation Status: retired Allergies Coded Allergies: Latex1 -Allergic Contact Dermititis (Verified Allergy, Unknown, ITCHING, RASH, 06/08/17) Penicillins (Verified Adverse Reaction, Unknown, STOMACH PAINS, 06/08/17) Current Inpatient Medications Current Inpatient Medications Medications (Trade) Dose Ordered Sig/Cassidy Route Start Time Stop Time Status Last Admin Dose Admin Diphenhydramine HCl (Benadryl Cap) 25 mg Q8 PRN PO 06/08/17 13:30 07/08/17 13:29 Zolpidem Tartrate (Ambien Tab) 5 mg HSZ PRN PO 06/08/17 13:30 07/08/17 13:29 Metoclopramide HCl (Reglan Inj) 10 mg Q6H PRN IV 06/08/17 13:30 07/08/17 13:29 Ondansetron HCl (Zofran Inj) 4 mg Q6H PRN IV 06/08/17 13:30 07/08/17 13:29 Ferrous Sulfate (Feosol Tab) 325 mg TIDM PO 06/08/17 17:45 07/08/17 17:44 06/08/17 18:43 325 MG Al Hydroxide/Mg Hydroxide (Maalox Susp) 30 ml Q6H PRN PO 06/08/17 13:30 07/08/17 13:29 Docusate Sodium (coLACE CAP) 100 mg BID PO 06/08/17 21:00 07/08/17 20:59 Ranitidine HCl (zANTac TAB) 150 mg BID PO 06/08/17 21:00 07/08/17 20:59 06/09/17 08:42 150 MG Sodium Chloride 1,000 ml @ 100 mls/hr Q10H IV 06/08/17 14:30 07/08/17 14:29 06/09/17 00:46 100 MLS/HR Vancomycin HCl 1250 mg/Sodium Chloride 275 ml @ 125 mls/hr Q14H IV 06/09/17 04:00 07/20/17 03:59 06/09/17 04:02 125 MLS/HR Miscellaneous Information (Consult) 1 ea UD PRN N/A 06/08/17 13:30 07/08/17 13:29 Atorvastatin Calcium (Lipitor Tab) 40 mg HS PO 06/08/17 21:00 07/08/17 20:59 06/08/17 21:54 40 MG Cetirizine HCl (zyrTEC TAB) 10 mg QPM PO 06/08/17 21:00 07/08/17 20:59 06/08/17 21:54 10 MG Colestipol HCl (Colestid Tab) 1 gm BID@1000,2200 PO 06/08/17 22:00 07/08/17 21:59 06/08/17 21:54 1 GM Cyanocobalamin (Vitamin B-12 Tab) 1,000 mcg QAM PO 06/09/17 09:00 07/09/17 08:59 Metoprolol Succinate (Toprol Xl Tab) 25 mg QAM PO 06/09/17 09:00 07/09/17 08:59 06/09/17 08:44 25 MG Raloxifene HCl (Evista Tab) 60 mg QAM PO 06/09/17 09:00 07/09/17 08:59 Pantoprazole Sodium (Protonix Tab) 40 mg QAM PO 06/09/17 09:00 07/09/17 08:59 06/09/17 08:44 40 MG Insulin Glargine (Lantus Vial) 70 units HS SC 06/08/17 21:00 07/08/17 20:59 06/08/17 21:57 70 UNITS Insulin Aspart (novoLOG ASPART) SLIDING SCALE G... ACHS SC 06/08/17 17:15 07/08/17 17:14 06/09/17 08:48 2 UNITS Acetaminophen (Tylenol Tab) 1,000 mg Q8H PRN PO 06/08/17 16:00 07/08/17 15:59 Oxycodone HCl (Roxicodone Immediate Rel Tab) `1-2 tabs for pain 1 tab ... Q4H PRN PO 06/08/17 16:00 06/22/17 15:59 Review of Systems All systems were reviewed and are negative except as per HPI Physical Exam Date Time Temp Pulse Resp B/P (MAP) Pulse Ox O2 Delivery O2 Flow Rate FiO2 06/09/17 08:41 94 Room Air 06/09/17 08:15 36.9 81 18 142/80 (100) 94 Room Air 06/09/17 07:40 Room Air 06/08/17 23:40 96 Room Air 06/08/17 23:40 110/57 (74) 06/08/17 23:14 36.7 73 14 97/59 (72) 96 Room Air 06/08/17 16:00 Room Air 06/08/17 14:30 36.8 89 18 126/72 Room Air 06/08/17 14:30 Room Air 06/08/17 14:25 36.8 89 18 126/72 (90) 97 Room Air 06/08/17 14:14 37.2 83 18 123/59 97 06/08/17 13:15 85 06/08/17 12:57 86 18 131/56 96 Room Air Manual 06/08/17 11:19 37.0 78 20 104/48 94 Room Air General Appearance: WD/WN, no apparent distress Head: normocephalic, atraumatic Eyes: normal inspection, EOMI, sclerae normal ENT: normal ENT inspection, hearing grossly normal, pharynx normal Neck: supple, no adenopathy, thyroid normal, trachea midline Respiratory/Chest: chest non-tender, lungs clear, normal breath sounds, no respiratory distress Cardiovascular: regular rate, rhythm, no gallop, no murmur Abdomen/GI: normal bowel sounds, non tender, soft, no organomegaly Back: normal inspection, no CVA tenderness Extremities/Musculoskelatal: no calf tenderness, normal capillary refill, + pertinent finding (Left knee swelling and increased warmth) Neurologic/Psych: alert, normal mood/affect, oriented x 3 Skin: normal color, warm/dry, no rash Lymphatic: no adenopathy Laboratory Results Date/Time Source Procedure Growth Status 06/08/17 12:37 Joint Fluid/Space (Synovial) Knee Left Gram Stain - Final Resulted 06/08/17 12:37 Joint Fluid/Space (Synovial) Knee Left Bacterial Culture Pending Resulted 06/08/17 11:01 Urine , Clean Catch Urine Culture - Final MORE THAN THREE TYPES OF ORGANISMS NE... Complete Last 24 Hours Test 06/08/17 11:01 06/08/17 12:37 06/08/17 17:28 06/08/17 20:30 Urine Color YELLOW Urine Appearance CLEAR Urine pH 5.0 Urine Specific [place] 1.017 Urine Protein NEG Urine Glucose (UA) 2+ Urine Ketones TRACE Urine Occult Blood NEG Urine Nitrite NEG Urine Bilirubin NEG Urine Urobilinogen NEG Urine Leukocyte Esterase TRACE Urine WBC (Auto) 1-5 /hpf Urine RBC (Auto) 0-4 /hpf Urine Hyaline Casts (Auto) 1-5 /lpf Urine Epithelial Cells (Auto) 20-30 /lpf Urine Bacteria (Auto) NEG Synovial Fluid Source KNEE Synovial Fluid Color YELLOW Synovial Fluid Appearance TURBID Synovial Fluid WBC 76334 /uL Synovial Fluid RBC 92212 /uL Synovial Fluid Polynuclear WBCs % 77.1 % Synovial Fluid Mononuclear WBCs % 22.9 % Synovial Fluid Crystals Bedside Glucose 258 mg/dl 264 mg/dl Test 06/09/17 06:16 06/09/17 08:24 White Blood Count 10.96 K/uL Red Blood Count 3.86 M/uL Hemoglobin 10.6 g/dL Hematocrit 34.3 % Mean Corpuscular Volume 88.9 fL Mean Corpuscular Hemoglobin 27.5 pg Mean Corpuscular Hemoglobin Concent 30.9 g/dl RDW Standard Deviation 53.3 fL RDW Coefficient of Variation 16.4 % Platelet Count 259 K/uL Mean Platelet Volume 9.8 fL Sodium Level 142 mmol/L Potassium Level 3.8 mmol/L Chloride Level 113 mmol/L Carbon Dioxide Level 22 mmol/L Anion Gap 7.0 mmol/L Blood Urea Nitrogen 13 mg/dl Creatinine 0.59 mg/dl Est Creatinine Clear Calc Drug Dose 93.3 ml/min Estimated GFR () 106.9 Estimated GFR (Non- 92.2 BUN/Creatinine Ratio 22.7 Random Glucose 177 mg/dl Calcium Level 8.2 mg/dl Bedside Glucose 210 mg/dl L KNEE 1 OR 2 VIEWS ROUTINE, R KNEE 1 OR 2 VIEWS ROUTINE HISTORY: 72 years-old Female knee pain, no trauma acute bilateral knee pain without reported trauma COMPARISON: None available TECHNIQUE: 2 views of the bilateral knees for a total of 4 images FINDINGS: LEFT: Left knee arthroplasty in satisfactory positioning. The bones appear mildly demineralized. Soft tissue calcifications are noted about the knee. Small knee joint effusion. No acute fracture or subluxation. RIGHT: Postoperative changes compatible with placement of a total knee arthroplasty with patellar resurfacing. The bones appear mildly demineralized. No evidence of hardware complication. [id number] joint effusion. No acute fracture or subluxation. IMPRESSION: 1. Bilateral knee arthroplasties without evidence of malalignment or complication. 2. Osteopenic appearance of the bones. 3. Small left and [id number] right knee joint effusions. The above report was generated using voice recognition software. It may contain grammatical, syntax or spelling errors. Electronically signed by: Link Richard M.D. 06/08/2017 10:26 AM Dictated Date/Time: 06/08/2017 10:24 AM The status of this report is Signed. Draft = Not yet reviewed or approved by Radiologist. Signed = Reviewed Assessment & Plan Apparent infection of left TKA, with patient now waiting OR for debridement and poly exchange. Patient should be continued on vancomycin pending further culture results. Will likely require prolonged IV 6-8 weeks of IV antibiotic therapy. Will discuss with. Will follow.
[2017-06-09] MEDS ORDERED: BACITRACIN 50000 UNIT VIAL ONE ×2 (14:50→15:47)
--- NOTE | 2017-06-09 14:52 | History & Physical Bridge Note ---
H&P Re-Evaluation Bridge Note: I have examined the patient, reviewed the History & Physical and in the interval since the performance of the History & Physical I have noted the following changes of clinical significance: No changes noted
[2017-06-09] MEDS ORDERED: LIDOCAINE HCL 2% 2 ML VIAL (20MG/ML) ONE (14:56)
[2017-06-09] MEDS ORDERED: NEOSTIGMINE METHYLSULFATE 5 MG/5 ML SYR ONE (14:56)
[2017-06-09] MEDS ORDERED: ONDANSETRON INJ 2 MG/ML 2 ML VIAL ONE (14:56)
[2017-06-09] MEDS ORDERED: GLYCOPYRROLATE INJ 0.2 MG/ML VIAL ONE (14:56)
[2017-06-09] MEDS ORDERED: ROCURONIUM BROMIDE 10 MG/ML 5 ML VIAL IV ONE (14:56)
[2017-06-09] MEDS ORDERED: PROPOFOL IV EMULSION 10 MG/ML 20 ML VIAL IV ONE (14:56)
[2017-06-09] MEDS ORDERED: MIDAZOLAM HCL 1 MG/ML 2ML VIAL ONE (14:57)
[2017-06-09] MEDS ORDERED: FENTANYL CITRATE INJ 50 MCG/1 ML 2 ML VIAL ONE (14:57)
[2017-06-09] MEDS ORDERED: ESMOLOL HCL 10 MG/ML 10 ML VIAL ONE (15:34)
[2017-06-09] MEDS ORDERED: POVIDONE-IODINE OP SOLN 30 ML BTL ONE (15:53)
--- NOTE | 2017-06-09 16:10 | [facility] Post Operative Brief Note ---
Immediate Operative Summary Operative Date Jun 09, 2017. Pre-Operative Diagnosis Suspected septic left knee Post-Operative Diagnosis same Procedure(s) Performed I&D poly exvhange left total knee Surgeon Dr. Hay Gun Stock Checker Surgeon(s) Yandel Hopkins PA-C Estimated Blood Loss 20cc Findings Consistent with Post-Op Diagnosis Specimens 3 sets cultures Anesthesia Type General Complication(s) none Disposition Accompanied Pt To Recover: no Disposition: Recovery Room / PACU
[2017-06-09] MEDS ORDERED: VANCOMYCIN CONSULT ACTIVE PRN (16:15)
[2017-06-09] MEDS ORDERED: ZOLPIDEM TARTRATE 5 MG TAB PO PRN (16:15)
[2017-06-09] MEDS ORDERED: ALUMINUM/MAGNESIUM/SIMETH (MAALOX MAX) 30 ML UDC PO PRN (16:15)
[2017-06-09] MEDS ORDERED: BISACODYL 10 MG SUPP PR PRN (16:15)
[2017-06-09] MEDS ORDERED: ONDANSETRON INJ 2 MG/ML 2 ML VIAL IV PRN (16:15)
[2017-06-09] MEDS ORDERED: VANCOMYCIN IV 0 MG in SODIUM CHLORIDE 0.9% 500ML 500 ML IV SCH (16:15)
[2017-06-09] MEDS ORDERED: SOD PHOSPHATE/SOD BIPHOSPHATE ENEMA 132 ML BTL PR PRN (16:15)
[2017-06-09] MEDS ORDERED: METOCLOPRAMIDE HCL INJ 5 MG/ML 2 ML VIAL IV PRN (16:15)
[2017-06-09] MEDS ORDERED: MoRPHine SULFATE 2 MG/ML CARP IV PRN ×2 (16:15→16:45)
[2017-06-09] MEDS ORDERED: MAGNESIUM HYDROXIDE SUSP 30 ML UDC PO PRN (16:15)
--- NOTE | 2017-06-09 16:33 | OPERATIVE REPORT ---
DATE OF OPERATION: 06/09/2017 PREOPERATIVE DIAGNOSIS: Septic left total knee. POSTOPERATIVE DIAGNOSIS: Septic left total knee. PROCEDURE: Synovectomy, excisional arthroplasty, incision and drainage and poly exchange, left total knee. SURGEON: Dr. Hay. RISK REDUCTION COUNSELOR: Yandel Hopkins PA-C. ANESTHESIA: General. COMPLICATIONS: None. DESCRIPTION OF PROCEDURE: Following induction of adequate general anesthesia, the patient's left leg was prepped and draped in usual sterile manner. Limb was exsanguinated with elevation only and the tourniquet was inflated to 312 mmHg. Longitudinal incision was reopened, subcutaneous tissue was sharply dissected, electrocautery was used for hemostasis. Median parapatellar incision was made and an initial irrigation with a couple 100 mL of pulsatile irrigant were utilized. Following this, a complete synovectomy was carried out and the polyethylene component was removed. Initial 3000 mL of sterile saline with bacitracin was passed through the knee using pulsatile irrigation and then the knee was treated on all of the raw surfaces using the Versajet and following this, an additional 3000 mL of irrigation was passed through the knee. Fresh gloves were donned, fresh instruments were obtained and the new polyethylene identically sized one taken out was removed. This was inserted. Final irrigation of the last 3000 mL of pulsatile irrigant was carried out. A Betadine soak was utilized and the wound was closed over Hemovac drain. The wounds were closed using #1 Vicryl, 0 Dexon and malaika. Silverlon dressing was applied. Sterile dressing of 4 x 4's, sterile Webril and double Sean was applied. The patient tolerated the procedure well. Mr. Hopkins, who was critical throughout all stages of the case including prepping, draping, bricklayer's assistant, wound closure and dressing application. I attest to the content of the Intraoperative Record and any orders documented therein. Any exception s are noted below.
[2017-06-09] MEDS ORDERED: MoRPHine SULFATE 4 MG/ML 1 ML CARP\\VIAL IV PRN (17:00)
[2017-06-09] MEDS ORDERED: MoRPHine SULFATE 10 MG/ML CARP/VIAL IV PRN (17:00)
--- NOTE | 2017-06-09 17:21 | Anesthesiology Progress Note ---
Anesthesia Post Op Note Date & Time Jun 09, 2017 at 17:21 Vital Signs Pain Intensity: 0 Vital Signs Past 12 Hours Date Time Temp Pulse Resp B/P (MAP) Pulse Ox O2 Delivery O2 Flow Rate FiO2 06/09/17 17:03 36.8 67 21 152/62 (109) 95 Nasal Cannula 2 06/09/17 16:56 153/63 06/09/17 16:53 64 25 98 06/09/17 16:53 64 25 06/09/17 16:51 151/60 06/09/17 16:48 72 26 06/09/17 16:48 71 26 99 06/09/17 16:46 152/60 06/09/17 16:43 76 21 157/67 99 06/09/17 16:43 37.0 76 22 157/67 (117) 99 Oxymask 10 06/09/17 16:43 76 21 06/09/17 14:30 37.2 82 18 164/68 (100) 97 Room Air 06/09/17 08:41 94 Room Air 06/09/17 08:15 36.9 81 18 142/80 (100) 94 Room Air 06/09/17 07:40 Room Air Notes Mental Status: alert / awake / arousable, participated in evaluation Pt Amnestic to Procedure: Yes Nausea / Vomiting: adequately controlled Pain: adequately controlled Airway Patency, RR, SpO2: stable & adequate BP & HR: stable & adequate Hydration State: stable & adequate Anesthetic Complications: no major complications apparent
[2017-06-09] MEDS: FERROUS GLUCONATE 324 MG TAB PO SCH (18:00)
[2017-06-09] MEDS: POTASSIUM CHLORIDE INJ 10 MEQ in SODIUM CHLORIDE 0.9% 1000ML 1,000 ML IV SCH (18:01)
[2017-06-09] MEDS: ACETAMINOPHEN IV 1,000 MG in EMPTY BAG 0 ML IV SCH (18:24)
[2017-06-09] MEDS: OXYCODONE HCL IR 5 MG TAB (IMMEDIATE RELEASE) PO PRN (20:06)
[2017-06-09] MEDS: CETIRIZINE HCL 10 MG TAB PO SCH (21:33)
[2017-06-09] MEDS: ATORVASTATIN 40 MG TAB PO SCH (21:33)
[2017-06-09] MEDS: SENNA 8.6 MG TAB PO SCH (21:34)
[2017-06-09] MEDS: INSULIN GLARGINE SC SCH (21:42)
[2017-06-10] VITALS (7 sets, daily range): BP systolic 121–149; BP diastolic 66–104; PULSE 68–89; TEMP 36.6–37.2; O2SAT 91–97
[2017-06-10] MEDS: ACETAMINOPHEN IV 1,000 MG in EMPTY BAG 0 ML IV SCH ×2 (02:10→09:43)
[2017-06-10] MEDS: POTASSIUM CHLORIDE INJ 10 MEQ in SODIUM CHLORIDE 0.9% 1000ML 1,000 ML IV SCH ×2 (03:36→16:41)
[2017-06-10] MEDS ORDERED: VANCOMYCIN TROUGH ONE (07:30)
[2017-06-10 07:45] LABS: HEMATOCRIT 30.7 % (37-47); HEMOGLOBIN 9.6 g/dL (12.0-16.0); MEAN CELL VOLUME 89.5 fL (80-100); MEAN CORPUSCULAR HGB CONC 31.3 g/dl (32-36); MEAN PLATELET VOLUME 9.6 fL (7.4-10.4); PLATELET COUNT 255 K/uL (130-400); RED CELL DISTRIBUTION WIDTH CV 16.3 % (11.5-14.5); RED CELL DISTRIBUTION WIDTH SD 53.6 fL (36.4-46.3)
[2017-06-10] MEDS: OXYCODONE HCL IR 5 MG TAB (IMMEDIATE RELEASE) PO PRN ×2 (07:47→15:53)
--- NOTE | 2017-06-10 08:03 | Family Medicine Progress Note ---
Progress Note Date of Service Jun 10, 2017. Subjective Pt evaluation today including: conversation w/ patient Found patient sitting up in her bed. Says she is doing well post yesterday's procedure. Says knee is sore but pain is controlled with medication. Denies any acute concerns and has been tolerating PO s/p procedure. Constitutional: No fever, No chills Respiratory: No cough, No shortness of breath Cardiovascular: No chest pain Abdomen: No pain, No nausea, No vomiting, No diarrhea Musculoskeletal: + joint pain Female : No dysuria Medications Current Inpatient Medications Medications (Trade) Dose Ordered Sig/Cassidy Route Start Time Stop Time Status Last Admin Dose Admin Diphenhydramine HCl (Benadryl Cap) 25 mg Q8 PRN PO 06/08/17 13:30 07/08/17 13:29 Ranitidine HCl (zANTac TAB) 150 mg BID PO 06/08/17 21:00 07/08/17 20:59 06/09/17 21:33 150 MG Vancomycin HCl 1250 mg/Sodium Chloride 275 ml @ 125 mls/hr Q14H IV 06/09/17 04:00 07/20/17 03:59 06/09/17 18:25 125 MLS/HR Miscellaneous Information (Consult) 1 ea UD PRN N/A 06/08/17 13:30 07/08/17 13:29 Atorvastatin Calcium (Lipitor Tab) 40 mg HS PO 06/08/17 21:00 07/08/17 20:59 06/09/17 21:33 40 MG Cetirizine HCl (zyrTEC TAB) 10 mg QPM PO 06/08/17 21:00 07/08/17 20:59 06/09/17 21:33 10 MG Colestipol HCl (Colestid Tab) 1 gm BID@1000,2200 PO 06/08/17 22:00 07/08/17 21:59 06/09/17 22:48 1 GM Cyanocobalamin (Vitamin B-12 Tab) 1,000 mcg QAM PO 06/09/17 09:00 07/09/17 08:59 Metoprolol Succinate (Toprol Xl Tab) 25 mg QAM PO 06/09/17 09:00 07/09/17 08:59 06/09/17 08:44 25 MG Raloxifene HCl (Evista Tab) 60 mg QAM PO 06/09/17 09:00 07/09/17 08:59 Pantoprazole Sodium (Protonix Tab) 40 mg QAM PO 06/09/17 09:00 07/09/17 08:59 06/09/17 08:44 40 MG Insulin Glargine (Lantus Vial) 70 units HS SC 06/08/17 21:00 07/08/17 20:59 06/09/17 21:42 70 UNITS Insulin Aspart (novoLOG ASPART) SLIDING SCALE G... ACHS SC 06/08/17 17:15 07/08/17 17:14 06/09/17 21:41 2 UNITS Acetaminophen (Tylenol Tab) 1,000 mg Q8H PRN PO 06/08/17 16:00 07/08/17 15:59 Future hold Potassium Chloride 10 meq/ Sodium Chloride 1,005 ml @ 100 mls/hr Q10H3M IV 06/09/17 17:00 07/09/17 16:59 06/10/17 03:36 100 MLS/HR Oxycodone HCl (Roxicodone Immediate Rel Tab) 1-2 TABS FOR PAIN 1 TABLET ... Q4H PRN PO 06/09/17 16:15 06/23/17 16:14 06/10/17 07:47 10 MG Acetaminophen 1000 mg/Empty Bag 100 ml @ 400 mls/hr Q8H IV 06/09/17 18:00 06/10/17 10:14 06/10/17 02:10 400 MLS/HR Magnesium Hydroxide (Milk Of Magnesia Susp) 30 ml Q6H PRN PO 06/09/17 16:15 07/09/17 16:14 Bisacodyl (Dulcolax Supp) 10 mg DAILY PRN NH 06/09/17 16:15 07/09/17 16:14 Sodium Biphosphate/ Sodium Phosphate (Fleet Enema) 132 ml DAILY PRN NH 06/09/17 16:15 07/09/17 16:14 Senna (Senokot Tab) 17.2 mg HS PO 06/09/17 21:00 07/09/17 20:59 06/09/17 21:34 17.2 MG Docusate Sodium (coLACE CAP) 100 mg BID PO 06/09/17 21:00 07/09/17 20:59 06/09/17 21:32 100 MG Al Hydrox/Mg Hydrox/Simethicone (Maalox Max Susp) 15 ml Q4H PRN PO 06/09/17 16:15 07/09/17 16:14 Zolpidem Tartrate (Ambien Tab) 5 mg HSZ PRN PO 06/09/17 16:15 07/09/17 16:14 Ondansetron HCl (Zofran Inj) 4 mg Q6H PRN IV 06/09/17 16:15 07/09/17 16:14 Metoclopramide HCl (Reglan Inj) 10 mg Q6H PRN IV 06/09/17 16:15 07/09/17 16:14 Ferrous Gluconate (Ferrous Gluconate Tab) 324 mg TIDM PO 06/09/17 17:45 07/09/17 17:44 06/09/17 18:00 324 MG Aspirin (Ecotrin Tab) 325 mg DAILY PO 06/10/17 09:00 07/10/17 08:59 Morphine Sulfate (MoRPHine SULFATE INJ) 2 mg Q3H PRN IV 06/09/17 16:45 06/23/17 16:44 Morphine Sulfate (MoRPHine SULFATE INJ) 4 mg Q3H PRN IV 06/09/17 17:00 06/23/17 16:59 06/09/17 17:22 4 MG Morphine Sulfate (MoRPHine SULFATE INJ) 6 mg Q3H PRN IV 06/09/17 17:00 06/23/17 16:59 06/09/17 23:46 6 MG Objective Vital Signs Date Time Temp Pulse Resp B/P (MAP) Pulse Ox O2 Delivery O2 Flow Rate FiO2 06/10/17 03:05 36.6 68 16 121/68 (85) 91 Room Air 06/09/17 23:41 36.9 74 16 138/62 (87) 92 Room Air 06/09/17 23:40 97 Room Air 06/09/17 19:50 Nasal Cannula 06/09/17 19:36 36.9 67 18 135/68 (90) 97 Nasal Cannula 2.0 06/09/17 18:30 36.7 68 17 135/57 (83) 96 Nasal Cannula 3.0 06/09/17 18:00 36.8 60 18 148/67 (94) 96 Nasal Cannula 3.0 06/09/17 17:23 18 06/09/17 17:23 71 18 06/09/17 17:22 68 17 06/09/17 17:22 67 17 94 06/09/17 17:21 151/64 06/09/17 17:17 68 20 06/09/17 17:17 67 20 92 06/09/17 17:16 149/61 06/09/17 17:12 63 22 06/09/17 17:12 63 22 94 06/09/17 17:11 144/60 06/09/17 17:07 64 22 06/09/17 17:07 64 22 94 06/09/17 17:06 152/62 06/09/17 17:03 36.8 67 21 152/62 (109) 95 Nasal Cannula 2 06/09/17 17:02 68 24 06/09/17 17:02 68 24 93 06/09/17 17:00 159/61 06/09/17 16:57 70 13 93 06/09/17 16:57 70 13 06/09/17 16:56 153/63 06/09/17 16:53 64 25 98 06/09/17 16:53 64 25 06/09/17 16:51 151/60 06/09/17 16:48 72 26 06/09/17 16:48 71 26 99 06/09/17 16:46 152/60 06/09/17 16:43 76 21 157/67 99 06/09/17 16:43 37.0 76 22 157/67 (117) 99 Oxymask 10 06/09/17 16:43 76 21 06/09/17 14:30 37.2 82 18 164/68 (100) 97 Room Air 06/09/17 08:41 94 Room Air 06/09/17 08:15 36.9 81 18 142/80 (100) 94 Room Air Physical Exam Notes: General Appearance: Awake, alert & oriented, comfortable in general, NAD. CV: +S1S2 RRR, no murmur. No peripheral edema. 2+ bilateral DP pulses. Pulm: Clear to auscultation throughout. Abdomen: +BS, soft, non-tender, non-distended. Extremities: No pedal edema or calf tenderness. Left knee fully sabine-wrapped with drain tubing. Distal toe movement intact and non-painful. Neuro: No gross neuro deficits. Lines: Left hand PIV. Laboratory Results 06/10/17 07:19 Test 06/09/17 20:48 06/10/17 07:19 Bedside Glucose 217 mg/dl (70-90) Red Blood Count 3.43 M/uL (4.2-5.4) Mean Corpuscular Volume 89.5 fL (80-100) Mean Corpuscular Hemoglobin 28.0 pg (25-34) Mean Corpuscular Hemoglobin Concent 31.3 g/dl (32-36) RDW Standard Deviation 53.6 fL (36.4-46.3) RDW Coefficient of Variation 16.3 % (11.5-14.5) Mean Platelet Volume 9.6 fL (7.4-10.4) Assessment and Plan 72 yo female admitted on [id number] to the orthopedics service for a septic left knee with prior left TKA. PMH: HTN, HLD, T2DM, osteoporosis, chronic diarrhea, and GERD Septic left artificial knee: Orthopedics service as primary. S/p left knee I&D with poly exchange on . Pain control with oxycodone prn, morphine prn, and tylenol prn. aspiration cultures no growth (final). joint space cultures no growth to date. started vancomycin. ID consulted. Afebrile. Current WBC 8. Last CRP 13, ESR 67. - ID recommendations pending. - Suspect patient will need PICC access in the near future. DM type 2 with hyperglycemia: HbA1c was 9.1. Holding metformin as inpatient. Currently on novolog and lantus. Monitoring. HTN: On home Metoprolol XL 25. Back on home lisinopril 20 mg after brief post- op hold. HLD: On home Lipitor 40. 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 On home Colestid 1 gm BID. Osteoporosis: On home Evista 60. GERD: At home on nexium. Here on Zantac 150 BID and protonix 40. Misc: UCx negative (final). Lyme negative. Code status: Full code Diet: NPO this morning. Carb counting in general. DVT prophy: SCD's. Medication per ortho. PT/OT: Per ortho. Disbo: Per ortho (primary team). Resident Physician Supervision Note: I interviewed and examined the patient. Discussed with Dr. Corona and agree with findings and plan as documented in the note. Any exceptions or clarifications are listed here: None Patient is doing well recovering from her knee surgery it is more painful than she remembers however she is had a poly-exchange were waiting for formal cultures before infectious disease make final determination of antibiotic choice Vital signs show temp 36 6 pulse 68 respirations 16 BP 120/68 Cardiac exam is regular lungs are clear We will continue IV vancomycin in lieu of our culture results we have backed down on her lisinopril which will be added and will continue to follow her glucoses is been reasonably good control Documented By: Garett Lam Resident Tracking Resident Involvement: Resident Care Provided Care Provided: Adult Hospital Medicine (inpatient)
[2017-06-10 08:09] LABS: CALCIUM 7.7 mg/dl (8.5-10.1); CREATININE 0.59 mg/dl (0.60-1.20); POTASSIUM 3.8 mmol/L (3.5-5.1)
[2017-06-10] MEDS ORDERED: ASPIRIN 325 MG ECTAB PO SCH (09:00)
[2017-06-10] MEDS ORDERED: PANTOprazole SOD 40 MG TAB PO SCH (09:00)
[2017-06-10] MEDS: VANCOMYCIN IV 1,250 MG in SODIUM CHLORIDE 0.9% 250ML 250 ML IV SCH ×2 (09:40→21:33)
[2017-06-10] MEDS: DOCUSATE SODIUM 100 MG CAP PO SCH ×2 (09:40→21:28)
[2017-06-10] MEDS: FERROUS GLUCONATE 324 MG TAB PO SCH ×3 (09:42→18:15)
[2017-06-10] MEDS: RANITIDINE HCL 150 MG TAB PO SCH ×2 (09:42→21:28)
[2017-06-10] MEDS: METOPROLOL SUCC 25MG EXT REL TAB PO SCH (09:42)
[2017-06-10] MEDS: PANTOprazole SOD 40 MG TAB PO SCH (09:42)
[2017-06-10] MEDS: RALOXIFENE 60 MG TAB PO SCH (09:43)
[2017-06-10] MEDS: COLESTIPOL HCL 1 GM TAB PO SCH ×2 (09:43→22:43)
[2017-06-10] MEDS: CYANOCOBALAMIN 500 MCG TAB (VIT B-12) PO SCH (09:43)
[2017-06-10] MEDS: INSULIN ASPART 100 UNITS/ML 3 ML PEN SC SCH ×4 (09:44→21:00)
[2017-06-10] MEDS ORDERED: LISINOPRIL 20 MG TAB PO ONE (10:36)
--- NOTE | 2017-06-10 10:43 | Pharmacy Progress Note ---
Pharmacy Abx Dose Progress Nt Date of Service Jun 10, 2017. Pharmacy Dosing Scope The patient is currently receiving the following antimicrobial agents per Pharmacy consult: Vancomycin 1250 mg IV/PO every 14 hours Objective Height (Feet): 5 Height (Inches): 3.00 Weight (Kilograms): 90.450 Vital Signs (Past 12Hrs) Vital Signs Past 12 Hours Date Time Temp Pulse Resp B/P (MAP) Pulse Ox O2 Delivery O2 Flow Rate FiO2 06/10/17 03:05 36.6 68 16 121/68 (85) 91 Room Air 06/09/17 23:41 36.9 74 16 138/62 (87) 92 Room Air 06/09/17 23:40 97 Room Air Lab Results (24Hrs) Laboratory Tests (24 Hours) Test 06/10/17 07:19 White Blood Count 8.30 K/uL (4.8-10.8) Micro Results Date/Time Source Procedure Growth Status 06/09/17 15:35 Joint Fluid/Space (Synovial) Knee Left Gram Stain - Final Resulted 06/09/17 15:35 Joint Fluid/Space (Synovial) Knee Left Bacterial Culture Pending Resulted 06/09/17 15:35 Joint Fluid/Space (Synovial) Knee Left Gram Stain - Final Resulted 06/09/17 15:35 Joint Fluid/Space (Synovial) Knee Left Bacterial Culture Pending Resulted 06/09/17 15:35 Joint Fluid/Space (Synovial) Knee Left Gram Stain - Final Resulted 06/09/17 15:35 Joint Fluid/Space (Synovial) Knee Left Bacterial Culture Pending Resulted 06/08/17 12:37 Joint Fluid/Space (Synovial) Knee Left Gram Stain - Final Resulted 06/08/17 12:37 Joint Fluid/Space (Synovial) Knee Left Bacterial Culture - Preliminary NO GROWTH TO DATE. Resulted 06/08/17 11:01 Urine , Clean Catch Urine Culture - Final MORE THAN THREE TYPES OF ORGANISMS [place]... Complete Assessment & Plan Ms. Cruz's lvl came back subtherapeutic; however, this is prior to Css. Will continue with current regimen. Due to her habitus she is at a risk for accumulation so I feel a dose/interval adj is not ca at this juncture. Will order a trough for 06/12/17 @0130. Pharmacy will continue to follow and will adjust dose/frequency as necessary. Thank you.
--- NOTE | 2017-06-10 15:51 | Orthopedic Progress Note ---
Orthopedic Progress Note Date of Service Jun 10, 2017. Subjective Post OP Day: 1 Reports: feeling well, Denies: chest pain, SOB, nausea / vomiting, light headedness, calf pain Objective calves soft nontender, N/V intact, dressing C/D/I, A&O x3, toes mobile Date Time Temp Pulse Resp B/P (MAP) Pulse Ox O2 Delivery O2 Flow Rate FiO2 06/10/17 14:00 37.0 88 16 149/73 (98) 94 06/10/17 07:54 36.6 83 18 140/104 (116) 97 Room Air 06/10/17 07:50 Room Air 06/10/17 03:05 36.6 68 16 121/68 (85) 91 Room Air 06/09/17 23:41 36.9 74 16 138/62 (87) 92 Room Air 06/09/17 23:40 97 Room Air 06/09/17 19:50 Nasal Cannula 06/09/17 19:36 36.9 67 18 135/68 (90) 97 Nasal Cannula 2.0 06/09/17 18:30 36.7 68 17 135/57 (83) 96 Nasal Cannula 3.0 06/09/17 18:00 36.8 60 18 148/67 (94) 96 Nasal Cannula 3.0 06/09/17 17:23 18 06/09/17 17:23 71 18 06/09/17 17:22 68 17 06/09/17 17:22 67 17 94 06/09/17 17:21 151/64 06/09/17 17:17 68 20 06/09/17 17:17 67 20 92 06/09/17 17:16 149/61 06/09/17 17:12 63 22 06/09/17 17:12 63 22 94 06/09/17 17:11 144/60 06/09/17 17:07 64 22 06/09/17 17:07 64 22 94 06/09/17 17:06 152/62 06/09/17 17:03 36.8 67 21 152/62 (109) 95 Nasal Cannula 2 06/09/17 17:02 68 24 06/09/17 17:02 68 24 93 06/09/17 17:00 159/61 06/09/17 16:57 70 13 93 06/09/17 16:57 70 13 06/09/17 16:56 153/63 06/09/17 16:53 64 25 98 06/09/17 16:53 64 25 06/09/17 16:51 151/60 06/09/17 16:48 72 26 06/09/17 16:48 71 26 99 06/09/17 16:46 152/60 06/09/17 16:43 76 21 157/67 99 06/09/17 16:43 37.0 76 22 157/67 (117) 99 Oxymask 10 06/09/17 16:43 76 21 Laboratory Results 24 Hours: Test 06/10/17 07:19 Hematocrit 30.7 % Hemoglobin 9.6 g/dL Assessment & Plan Assessment: Left Septic TKA Plan: IV antibx Follow cx's for now Antibx choice as per ID Team Inhouse Planning Pain Management: Morphine, PO Tylenol, Oxy IR DVT Prophylaxis: TEDs, SCDs, ASA Discharge Planning Discharge Planning: home with home health
[2017-06-10] MEDS: SENNA 8.6 MG TAB PO SCH (21:00)
[2017-06-10] MEDS: CETIRIZINE HCL 10 MG TAB PO SCH (21:27)
[2017-06-10] MEDS: ATORVASTATIN 40 MG TAB PO SCH (21:28)
[2017-06-10] MEDS: ASPIRIN 325 MG ECTAB PO SCH (21:28)
--- NOTE | 2017-06-10 21:29 | Infectious Disease Progress Nt ---
Progress Note Date of Service Jun 10, 2017. Subjective Pt evaluation today including: conversation w/ patient, conversation w/ family , physical exam, chart review, lab review, review of studies, conversation w/ crm consultant, review of inpatient medication list Expected postoperative discomfort. Remains afebrile. Operative cultures negative to date. All Other Systems: Reviewed and Negative Medications Current Inpatient Medications Medications (Trade) Dose Ordered Sig/Cassidy Route Start Time Stop Time Status Last Admin Dose Admin Diphenhydramine HCl (Benadryl Cap) 25 mg Q8 PRN PO 06/08/17 13:30 07/08/17 13:29 Ranitidine HCl (zANTac TAB) 150 mg BID PO 06/08/17 21:00 07/08/17 20:59 06/10/17 09:42 150 MG Vancomycin HCl 1250 mg/Sodium Chloride 275 ml @ 125 mls/hr Q14H IV 06/09/17 04:00 07/20/17 03:59 06/10/17 09:40 125 MLS/HR Miscellaneous Information (Consult) 1 ea UD PRN N/A 06/08/17 13:30 07/08/17 13:29 Atorvastatin Calcium (Lipitor Tab) 40 mg HS PO 06/08/17 21:00 07/08/17 20:59 06/09/17 21:33 40 MG Cetirizine HCl (zyrTEC TAB) 10 mg QPM PO 06/08/17 21:00 07/08/17 20:59 06/09/17 21:33 10 MG Colestipol HCl (Colestid Tab) 1 gm BID@1000,2200 PO 06/08/17 22:00 07/08/17 21:59 06/10/17 09:43 1 GM Cyanocobalamin (Vitamin B-12 Tab) 1,000 mcg QAM PO 06/09/17 09:00 07/09/17 08:59 06/10/17 09:43 1,000 MCG Metoprolol Succinate (Toprol Xl Tab) 25 mg QAM PO 06/09/17 09:00 07/09/17 08:59 06/10/17 09:42 25 MG Raloxifene HCl (Evista Tab) 60 mg QAM PO 06/09/17 09:00 07/09/17 08:59 06/10/17 09:43 60 MG Pantoprazole Sodium (Protonix Tab) 40 mg QAM PO 06/09/17 09:00 07/09/17 08:59 06/10/17 09:42 40 MG Insulin Glargine (Lantus Vial) 70 units HS SC 06/08/17 21:00 07/08/17 20:59 06/09/17 21:42 70 UNITS Insulin Aspart (novoLOG ASPART) SLIDING SCALE G... ACHS SC 06/08/17 17:15 07/08/17 17:14 06/10/17 18:17 3 UNITS Acetaminophen (Tylenol Tab) 1,000 mg Q8H PRN PO 06/08/17 16:00 07/08/17 15:59 Future hold Potassium Chloride 10 meq/ Sodium Chloride 1,005 ml @ 100 mls/hr Q10H3M IV 06/09/17 17:00 07/09/17 16:59 06/10/17 16:41 100 MLS/HR Oxycodone HCl (Roxicodone Immediate Rel Tab) 1-2 TABS FOR PAIN 1 TABLET ... Q4H PRN PO 06/09/17 16:15 06/23/17 16:14 06/10/17 15:53 5 MG Magnesium Hydroxide (Milk Of Magnesia Susp) 30 ml Q6H PRN PO 06/09/17 16:15 07/09/17 16:14 Bisacodyl (Dulcolax Supp) 10 mg DAILY PRN MA 06/09/17 16:15 07/09/17 16:14 Sodium Biphosphate/ Sodium Phosphate (Fleet Enema) 132 ml DAILY PRN MA 06/09/17 16:15 07/09/17 16:14 Senna (Senokot Tab) 17.2 mg HS PO 06/09/17 21:00 07/09/17 20:59 06/09/17 21:34 17.2 MG Docusate Sodium (coLACE CAP) 100 mg BID PO 06/09/17 21:00 07/09/17 20:59 06/10/17 09:40 100 MG Al Hydrox/Mg Hydrox/Simethicone (Maalox Max Susp) 15 ml Q4H PRN PO 06/09/17 16:15 07/09/17 16:14 Zolpidem Tartrate (Ambien Tab) 5 mg HSZ PRN PO 06/09/17 16:15 07/09/17 16:14 Ondansetron HCl (Zofran Inj) 4 mg Q6H PRN IV 06/09/17 16:15 07/09/17 16:14 Metoclopramide HCl (Reglan Inj) 10 mg Q6H PRN IV 06/09/17 16:15 07/09/17 16:14 Ferrous Gluconate (Ferrous Gluconate Tab) 324 mg TIDM PO 06/09/17 17:45 07/09/17 17:44 06/10/17 18:15 324 MG Morphine Sulfate (MoRPHine SULFATE INJ) 2 mg Q3H PRN IV 06/09/17 16:45 06/23/17 16:44 Morphine Sulfate (MoRPHine SULFATE INJ) 4 mg Q3H PRN IV 06/09/17 17:00 06/23/17 16:59 06/09/17 17:22 4 MG Morphine Sulfate (MoRPHine SULFATE INJ) 6 mg Q3H PRN IV 06/09/17 17:00 06/23/17 16:59 06/09/17 23:46 6 MG Lisinopril (Zestril Tab) 20 mg QAM PO 06/11/17 09:00 07/11/17 08:59 Aspirin (Ecotrin Tab) 325 mg BID PO 06/10/17 21:00 07/10/17 08:59 Objective Vital Signs Date Time Temp Pulse Resp B/P (MAP) Pulse Ox O2 Delivery O2 Flow Rate FiO2 06/10/17 15:49 37.2 89 18 139/66 (90) 95 Room Air 06/10/17 15:45 95 Room Air 06/10/17 14:00 37.0 88 16 149/73 (98) 94 06/10/17 07:54 36.6 83 18 140/104 (116) 97 Room Air 06/10/17 07:50 Room Air 06/10/17 03:05 36.6 68 16 121/68 (85) 91 Room Air 06/09/17 23:41 36.9 74 16 138/62 (87) 92 Room Air 06/09/17 23:40 97 Room Air Physical Exam General Appearance: WD/WN, no apparent distress Eyes: normal inspection, EOMI, sclerae normal ENT: normal ENT inspection, hearing grossly normal, pharynx normal Neck: supple, no adenopathy, thyroid normal, trachea midline Respiratory/Chest: chest non-tender, lungs clear, normal breath sounds, no respiratory distress Cardiovascular: regular rate, rhythm, no gallop, no murmur Abdomen: normal bowel sounds, non tender, soft, no organomegaly Extremities: non-tender, no calf tenderness, normal capillary refill Neurologic/Psychiatric: alert, oriented x 3 Skin: normal color, no rash, + pertinent finding (Surgical dressing intact left made) Lymphatic: no adenopathy Laboratory Results RUN DATE: 06/10/17 [facility] PAGE 1 RUN TIME: 1413 Specimen Inquiry PATIENT: SAMANTHA ROSE LOC: [facility] U # : [id number] AGE/SX: 72/F ROOM: [facility] ([place] REG : 06/08/[address]: Matthew Hay M.D. : 1945 BED: 2 DIS : STATUS: ADM IN TLOC: SPEC #: [id number] CONSTANZA: 06/09/17 STATUS: RES REQ #: [id number] RECD: 06/09/[address]: Matthew Hay M.D. SOURCE: [facility] ENTR: 06/09/17 [facility] DR: Dioni Flynn MD [facility]: KNEE LEFT Amber Brewer M.D. Covaleski, Thomas E., M.D. ORDERED: AER/BRANDON CULTSMR COMMENTS: CULTURE #3. Procedure Result Verified Site GRAM STAIN Final 06/10/17 RESULT MODERATE POLYS NO ORGANISMS SEEN OR AER/BRANDON CULT Preliminary 06/10/17-1412 NO GROWTH TO DATE. Last 24 Hours Test 06/10/17 07:19 06/10/17 08:14 06/10/17 12:34 06/10/17 17:06 White Blood Count 8.30 K/uL Red Blood Count 3.43 M/uL Hemoglobin 9.6 g/dL Hematocrit 30.7 % Mean Corpuscular Volume 89.5 fL Mean Corpuscular Hemoglobin 28.0 pg Mean Corpuscular Hemoglobin Concent 31.3 g/dl RDW Standard Deviation 53.6 fL RDW Coefficient of Variation 16.3 % Platelet Count 255 K/uL Mean Platelet Volume 9.6 fL Sodium Level 141 mmol/L Potassium Level 3.8 mmol/L Chloride Level 111 mmol/L Carbon Dioxide Level 25 mmol/L Anion Gap 5.0 mmol/L Blood Urea Nitrogen 9 mg/dl Creatinine 0.59 mg/dl Est Creatinine Clear Calc Drug Dose 93.3 ml/min Estimated GFR () 106.9 Estimated GFR (Non- 92.2 BUN/Creatinine Ratio 14.9 Random Glucose 86 mg/dl Calcium Level 7.7 mg/dl Vancomycin Level Trough 11.8 mcg/ml Bedside Glucose 91 mg/dl 129 mg/dl 153 mg/dl Test 06/10/17 20:50 Bedside Glucose 150 mg/dl Assessment and Plan Apparent infection of left TKA, with patient now waiting OR for debridement and poly exchange. Patient should be continued on vancomycin pending final culture results. If remains negative, would consider use of daptomycin to allow easiest outpatient therapy. Will discuss with all involved.
[2017-06-10] MEDS: INSULIN GLARGINE SC SCH (21:30)
[2017-06-11] MEDS: POTASSIUM CHLORIDE INJ 10 MEQ in SODIUM CHLORIDE 0.9% 1000ML 1,000 ML IV SCH (02:21)
[2017-06-11] MEDS: INSULIN ASPART 100 UNITS/ML 3 ML PEN SC SCH ×4 (08:00→21:58)
[2017-06-11 08:47] VITALS: BP 154/76; PULSE 66; TEMP 36.6; O2SAT 93
--- NOTE | 2017-06-11 08:49 | Family Medicine Progress Note ---
Progress Note Date of Service Jun 11, 2017. Subjective Pt evaluation today including: conversation w/ patient Found patient sitting in the exam chair. Says she's overall comfortable, pain much improved and controlled, and has no acute concerns. Constitutional: No fever, No chills Respiratory: No cough, No shortness of breath Cardiovascular: No chest pain Abdomen: No pain, No nausea, No vomiting, No diarrhea Musculoskeletal: + joint pain (left knee s/p surgery) Female : No dysuria Medications Current Inpatient Medications Medications (Trade) Dose Ordered Sig/Cassidy Route Start Time Stop Time Status Last Admin Dose Admin Diphenhydramine HCl (Benadryl Cap) 25 mg Q8 PRN PO 06/08/17 13:30 07/08/17 13:29 Ranitidine HCl (zANTac TAB) 150 mg BID PO 06/08/17 21:00 07/08/17 20:59 06/10/17 21:28 150 MG Vancomycin HCl 1250 mg/Sodium Chloride 275 ml @ 125 mls/hr Q14H IV 06/09/17 04:00 07/20/17 03:59 06/10/17 21:33 125 MLS/HR Miscellaneous Information (Consult) 1 ea UD PRN N/A 06/08/17 13:30 07/08/17 13:29 Atorvastatin Calcium (Lipitor Tab) 40 mg HS PO 06/08/17 21:00 07/08/17 20:59 06/10/17 21:28 40 MG Cetirizine HCl (zyrTEC TAB) 10 mg QPM PO 06/08/17 21:00 07/08/17 20:59 06/10/17 21:27 10 MG Colestipol HCl (Colestid Tab) 1 gm BID@1000,2200 PO 06/08/17 22:00 07/08/17 21:59 06/10/17 22:43 1 GM Cyanocobalamin (Vitamin B-12 Tab) 1,000 mcg QAM PO 06/09/17 09:00 07/09/17 08:59 06/10/17 09:43 1,000 MCG Metoprolol Succinate (Toprol Xl Tab) 25 mg QAM PO 06/09/17 09:00 07/09/17 08:59 06/10/17 09:42 25 MG Raloxifene HCl (Evista Tab) 60 mg QAM PO 06/09/17 09:00 07/09/17 08:59 06/10/17 09:43 60 MG Pantoprazole Sodium (Protonix Tab) 40 mg QAM PO 06/09/17 09:00 07/09/17 08:59 06/10/17 09:42 40 MG Insulin Glargine (Lantus Vial) 70 units HS SC 06/08/17 21:00 07/08/17 20:59 06/10/17 21:30 70 UNITS Insulin Aspart (novoLOG ASPART) SLIDING SCALE G... ACHS SC 06/08/17 17:15 07/08/17 17:14 06/10/17 18:17 3 UNITS Acetaminophen (Tylenol Tab) 1,000 mg Q8H PRN PO 06/08/17 16:00 07/08/17 15:59 Future hold Potassium Chloride 10 meq/ Sodium Chloride 1,005 ml @ 100 mls/hr Q10H3M IV 06/09/17 17:00 07/09/17 16:59 06/11/17 02:21 100 MLS/HR Oxycodone HCl (Roxicodone Immediate Rel Tab) 1-2 TABS FOR PAIN 1 TABLET ... Q4H PRN PO 06/09/17 16:15 06/23/17 16:14 06/10/17 15:53 5 MG Magnesium Hydroxide (Milk Of Magnesia Susp) 30 ml Q6H PRN PO 06/09/17 16:15 07/09/17 16:14 Bisacodyl (Dulcolax Supp) 10 mg DAILY PRN AL 06/09/17 16:15 07/09/17 16:14 Sodium Biphosphate/ Sodium Phosphate (Fleet Enema) 132 ml DAILY PRN AL 06/09/17 16:15 07/09/17 16:14 Senna (Senokot Tab) 17.2 mg HS PO 06/09/17 21:00 07/09/17 20:59 06/09/17 21:34 17.2 MG Docusate Sodium (coLACE CAP) 100 mg BID PO 06/09/17 21:00 07/09/17 20:59 06/10/17 21:28 100 MG Al Hydrox/Mg Hydrox/Simethicone (Maalox Max Susp) 15 ml Q4H PRN PO 06/09/17 16:15 07/09/17 16:14 Zolpidem Tartrate (Ambien Tab) 5 mg HSZ PRN PO 06/09/17 16:15 07/09/17 16:14 Ondansetron HCl (Zofran Inj) 4 mg Q6H PRN IV 06/09/17 16:15 07/09/17 16:14 Metoclopramide HCl (Reglan Inj) 10 mg Q6H PRN IV 06/09/17 16:15 07/09/17 16:14 Ferrous Gluconate (Ferrous Gluconate Tab) 324 mg TIDM PO 06/09/17 17:45 07/09/17 17:44 06/10/17 18:15 324 MG Morphine Sulfate (MoRPHine SULFATE INJ) 2 mg Q3H PRN IV 06/09/17 16:45 06/23/17 16:44 Morphine Sulfate (MoRPHine SULFATE INJ) 4 mg Q3H PRN IV 06/09/17 17:00 06/23/17 16:59 06/09/17 17:22 4 MG Morphine Sulfate (MoRPHine SULFATE INJ) 6 mg Q3H PRN IV 06/09/17 17:00 06/23/17 16:59 06/09/17 23:46 6 MG Lisinopril (Zestril Tab) 20 mg QAM PO 06/11/17 09:00 07/11/17 08:59 Aspirin (Ecotrin Tab) 325 mg BID PO 06/10/17 21:00 07/10/17 08:59 06/10/17 21:28 325 MG Objective Vital Signs Date Time Temp Pulse Resp B/P (MAP) Pulse Ox O2 Delivery O2 Flow Rate FiO2 06/10/17 23:40 95 Room Air 2.0 06/10/17 23:08 36.7 83 16 146/75 (98) 95 Room Air 06/10/17 15:49 37.2 89 18 139/66 (90) 95 Room Air 06/10/17 15:45 95 Room Air 06/10/17 14:00 37.0 88 16 149/73 (98) 94 Physical Exam Notes: General Appearance: Awake, alert & oriented, comfortable in general, NAD. CV: +S1S2 RRR, no murmur. No peripheral edema. 2+ bilateral DP pulses. Pulm: Clear to auscultation throughout. Abdomen: +BS, soft, non-tender, non-distended. Extremities: No pedal edema or calf tenderness. Left knee fully sabine-wrapped with drain tubing. Distal toe movement intact and non-painful. Neuro: No gross neuro deficits. Lines: Right arm PIV. Laboratory Results 06/11/17 10:09 06/11/17 10:09 Test 06/11/17 10:09 06/11/17 11:51 Red Blood Count 3.46 M/uL (4.2-5.4) Mean Corpuscular Volume 88.2 fL (80-100) Mean Corpuscular Hemoglobin 28.0 pg (25-34) Mean Corpuscular Hemoglobin Concent 31.8 g/dl (32-36) RDW Standard Deviation 52.3 fL (36.4-46.3) RDW Coefficient of Variation 16.2 % (11.5-14.5) Mean Platelet Volume 8.9 fL (7.4-10.4) Anion Gap 9.0 mmol/L (3-11) Est Creatinine Clear Calc Drug Dose 78.7 ml/min Estimated GFR () 101.0 Estimated GFR (Non- 87.2 BUN/Creatinine Ratio 11.6 (10-20) Calcium Level 8.2 mg/dl (8.5-10.1) Bedside Glucose 108 mg/dl (70-90) Assessment and Plan 72 yo female admitted on [id number] to the orthopedics service for a septic left knee with prior left TKA. PMH: HTN, HLD, T2DM, osteoporosis, chronic diarrhea, and GERD Septic left artificial knee: Orthopedics service as primary. S/p left knee I&D with poly exchange on . Pain control with oxycodone prn, morphine prn, and tylenol prn. aspiration cultures no growth (final). joint space cultures no growth to date. started vancomycin. Afebrile. Last WBC 8, CRP 13, ESR 67. - ID onboard, recommended daptomycin due to negative cultures thus far. Will provide outpt rx for weight-based (540 mg) daily dosing via PICC line for planned six weeks. - Plan for PICC line placement today. Hypokalemia: K 3.4, borderline. Replacing. DM type 2 with hyperglycemia: HbA1c was 9.1. Holding metformin as inpatient. Currently on novolog and lantus. Monitoring. HTN: On home Metoprolol XL 25. Back on home lisinopril 20 mg after brief post- op hold. HLD: On home Lipitor 40. 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 On home Colestid 1 gm BID. Osteoporosis: On home Evista 60. GERD: At home on nexium. Here on Zantac 150 BID and protonix 40. Misc: 06Mar UCx negative (final). Lyme negative. Code status: Full code Diet: DM2 with carb counting in general. DVT prophy: SCD's. PT/OT: Per ortho. Disbo: Per ortho (primary team). Resident Physician Supervision Note: I interviewed and examined the patient. Discussed with Dr. Corona and agree with findings and plan as documented in the note. Any exceptions or clarifications are listed here: None Patient is doing very well postoperatively she is only has a mild acute blood loss anemia with hemoglobin 9.7 potassium 3.4 she is doing reasonably well also with her physical therapy and likely expected to go home in 1-2 days She is only minor knee pain no complaints of chest pain pressure or shortness of breath or cardiac exam sounds to be regular lungs are clear Patient is recovering well from a knee replacement surgery will replete her potassium and follow her labs anticipate discharge in the next 1-2 days Documented By: Garett Lam Resident Tracking Resident Involvement: Resident Care Provided Care Provided: Adult Hospital Medicine (inpatient)
[2017-06-11 08:51] VITALS: O2SAT 93
[2017-06-11] MEDS: FERROUS GLUCONATE 324 MG TAB PO SCH ×3 (08:59→18:14)
[2017-06-11] MEDS: PANTOprazole SOD 40 MG TAB PO SCH (09:00)
[2017-06-11] MEDS: ASPIRIN 325 MG ECTAB PO SCH ×2 (09:00→21:53)
[2017-06-11] MEDS: METOPROLOL SUCC 25MG EXT REL TAB PO SCH (09:00)
[2017-06-11] MEDS: RANITIDINE HCL 150 MG TAB PO SCH ×2 (09:00→21:52)
[2017-06-11] MEDS: DOCUSATE SODIUM 100 MG CAP PO SCH ×2 (09:00→21:54)
[2017-06-11] MEDS: CYANOCOBALAMIN 500 MCG TAB (VIT B-12) PO SCH (09:00)
[2017-06-11] MEDS: LISINOPRIL 20 MG TAB PO SCH (09:01)
[2017-06-11] MEDS: RALOXIFENE 60 MG TAB PO SCH (09:01)
--- NOTE | 2017-06-11 09:26 | Orthopedic Progress Note ---
Orthopedic Progress Note Date of Service Jun 11, 2017. Subjective Post OP Day: 2 Reports: feeling well Objective N/V intact, dressing C/D/I (Hemovac in place), toes mobile Date Time Temp Pulse Resp B/P (MAP) Pulse Ox O2 Delivery O2 Flow Rate FiO2 06/11/17 08:51 93 Room Air 06/11/17 08:47 36.6 66 16 154/76 (102) 93 Room Air 06/10/17 23:40 95 Room Air 2.0 06/10/17 23:08 36.7 83 16 146/75 (98) 95 Room Air 06/10/17 15:49 37.2 89 18 139/66 (90) 95 Room Air 06/10/17 15:45 95 Room Air 06/10/17 14:00 37.0 88 16 149/73 (98) 94 Laboratory Results 24 Hours: Test 06/11/17 04:44 Additional Notes: Labs pending Assessment & Plan Assessment: 72 yo female stable POD #2 s/p septic left TKA I&D, cultures negative to date Plan: 1. Med management- PICC line to be ordered, await Dr Flynn's final recommendations for home IV abx 2. DVT prophylaxis- ASA, SCDs 3. PT/OT 4. D/C planning- when home IV abx arranged Inhouse Planning Pain Management: Morphine, PO Tylenol, Oxy IR DVT Prophylaxis: TEDs, SCDs, ASA Discharge Planning Discharge Planning: home with home health
[2017-06-11 10:22] LABS: HEMATOCRIT 30.5 % (37-47); HEMOGLOBIN 9.7 g/dL (12.0-16.0); MEAN CELL VOLUME 88.2 fL (80-100); MEAN CORPUSCULAR HGB CONC 31.8 g/dl (32-36); MEAN PLATELET VOLUME 8.9 fL (7.4-10.4); PLATELET COUNT 279 K/uL (130-400); RED CELL DISTRIBUTION WIDTH CV 16.2 % (11.5-14.5); RED CELL DISTRIBUTION WIDTH SD 52.3 fL (36.4-46.3); WHITE BLOOD COUNT 8.12 K/uL (4.8-10.8)
[2017-06-11 10:57] LABS: CALCIUM 8.2 mg/dl (8.5-10.1); CREATININE 0.7 mg/dl (0.60-1.20); POTASSIUM 3.4 mmol/L (3.5-5.1)
[2017-06-11] MEDS: COLESTIPOL HCL 1 GM TAB PO SCH ×2 (12:07→22:53)
[2017-06-11] MEDS ORDERED: POTASSIUM CHLORIDE 20 MEQ TABCR PO STA (12:35)
[2017-06-11] MEDS: OXYCODONE HCL IR 5 MG TAB (IMMEDIATE RELEASE) PO PRN (15:22)
[2017-06-11] MEDS: DAPTOmycin IV 550 MG in SYRINGE 0 ML IV SCH (15:23)
[2017-06-11 15:46] VITALS: BP 146/75; PULSE 73; TEMP 36.8; O2SAT 96
[2017-06-11] MEDS: ATORVASTATIN 40 MG TAB PO SCH (21:51)
[2017-06-11] MEDS: CETIRIZINE HCL 10 MG TAB PO SCH (21:51)
[2017-06-11] MEDS: SENNA 8.6 MG TAB PO SCH (21:54)
[2017-06-11] MEDS: INSULIN GLARGINE SC SCH (21:59)
[2017-06-11 23:05] VITALS: BP 123/67; PULSE 80; TEMP 36.9; O2SAT 97
[2017-06-12] MEDS ORDERED: VANCOMYCIN TROUGH ONE (01:30)
[2017-06-12 08:13] VITALS: BP 115/74; PULSE 80; TEMP 37; O2SAT 95
--- NOTE | 2017-06-12 08:36 | Family Medicine Progress Note ---
Progress Note Date of Service Jun 12, 2017. Subjective Pt evaluation today including: conversation w/ patient Found patient resting this morning. Says minimal to no knee pain overnight. Had some discomfort after ortho exam yesterday, controlled with pain meds. Otherwise has no acute concerns. Constitutional: No fever, No chills Respiratory: No cough, No shortness of breath Cardiovascular: No chest pain Abdomen: No pain, No nausea, No diarrhea Musculoskeletal: + joint pain (left knee) Female : No dysuria Medications Current Inpatient Medications Medications (Trade) Dose Ordered Sig/Cassdiy Route Start Time Stop Time Status Last Admin Dose Admin Diphenhydramine HCl (Benadryl Cap) 25 mg Q8 PRN PO 06/08/17 13:30 07/08/17 13:29 Ranitidine HCl (zANTac TAB) 150 mg BID PO 06/08/17 21:00 07/08/17 20:59 06/11/17 21:52 150 MG Atorvastatin Calcium (Lipitor Tab) 40 mg HS PO 06/08/17 21:00 07/08/17 20:59 06/10/17 21:28 40 MG Cetirizine HCl (zyrTEC TAB) 10 mg QPM PO 06/08/17 21:00 07/08/17 20:59 06/11/17 21:51 10 MG Colestipol HCl (Colestid Tab) 1 gm BID@1000,2200 PO 06/08/17 22:00 07/08/17 21:59 06/11/17 22:53 1 GM Cyanocobalamin (Vitamin B-12 Tab) 1,000 mcg QAM PO 06/09/17 09:00 07/09/17 08:59 06/11/17 09:00 1,000 MCG Metoprolol Succinate (Toprol Xl Tab) 25 mg QAM PO 06/09/17 09:00 07/09/17 08:59 06/11/17 09:00 25 MG Raloxifene HCl (Evista Tab) 60 mg QAM PO 06/09/17 09:00 07/09/17 08:59 06/11/17 09:01 60 MG Pantoprazole Sodium (Protonix Tab) 40 mg QAM PO 06/09/17 09:00 07/09/17 08:59 06/11/17 09:00 40 MG Insulin Glargine (Lantus Vial) 70 units HS SC 06/08/17 21:00 07/08/17 20:59 06/11/17 21:59 70 UNITS Insulin Aspart (novoLOG ASPART) SLIDING SCALE G... ACHS SC 06/08/17 17:15 07/08/17 17:14 06/11/17 21:58 3 UNITS Acetaminophen (Tylenol Tab) 1,000 mg Q8H PRN PO 06/08/17 16:00 07/08/17 15:59 Future hold Oxycodone HCl (Roxicodone Immediate Rel Tab) 1-2 TABS FOR PAIN 1 TABLET ... Q4H PRN PO 06/09/17 16:15 06/23/17 16:14 06/11/17 15:22 10 MG Magnesium Hydroxide (Milk Of Magnesia Susp) 30 ml Q6H PRN PO 06/09/17 16:15 07/09/17 16:14 Bisacodyl (Dulcolax Supp) 10 mg DAILY PRN ND 06/09/17 16:15 07/09/17 16:14 Sodium Biphosphate/ Sodium Phosphate (Fleet Enema) 132 ml DAILY PRN ND 06/09/17 16:15 07/09/17 16:14 Senna (Senokot Tab) 17.2 mg HS PO 06/09/17 21:00 07/09/17 20:59 06/09/17 21:34 17.2 MG Docusate Sodium (coLACE CAP) 100 mg BID PO 06/09/17 21:00 07/09/17 20:59 06/11/17 09:00 100 MG Al Hydrox/Mg Hydrox/Simethicone (Maalox Max Susp) 15 ml Q4H PRN PO 06/09/17 16:15 07/09/17 16:14 Zolpidem Tartrate (Ambien Tab) 5 mg HSZ PRN PO 06/09/17 16:15 07/09/17 16:14 Ondansetron HCl (Zofran Inj) 4 mg Q6H PRN IV 06/09/17 16:15 07/09/17 16:14 Metoclopramide HCl (Reglan Inj) 10 mg Q6H PRN IV 06/09/17 16:15 07/09/17 16:14 Ferrous Gluconate (Ferrous Gluconate Tab) 324 mg TIDM PO 06/09/17 17:45 07/09/17 17:44 06/11/17 18:14 324 MG Morphine Sulfate (MoRPHine SULFATE INJ) 2 mg Q3H PRN IV 06/09/17 16:45 06/23/17 16:44 Morphine Sulfate (MoRPHine SULFATE INJ) 4 mg Q3H PRN IV 06/09/17 17:00 06/23/17 16:59 06/09/17 17:22 4 MG Morphine Sulfate (MoRPHine SULFATE INJ) 6 mg Q3H PRN IV 06/09/17 17:00 06/23/17 16:59 06/09/17 23:46 6 MG Lisinopril (Zestril Tab) 20 mg QAM PO 06/11/17 09:00 07/11/17 08:59 06/11/17 09:01 20 MG Aspirin (Ecotrin Tab) 325 mg BID PO 06/10/17 21:00 07/10/17 08:59 06/11/17 21:53 325 MG Daptomycin 550 mg/ Syringe 11 ml @ 5.5 mls/min Q24H IV 06/11/17 14:00 07/23/17 13:59 06/11/17 15:23 5.5 MLS/MIN Heparin Sodium (Porcine) (Heparin 10 Unit/ ml 5 ml Flush) 5 ml PRN PRN FLUSH 06/11/17 16:00 07/11/17 15:59 06/12/17 08:25 5 ML Objective Vital Signs Date Time Temp Pulse Resp B/P (MAP) Pulse Ox O2 Delivery O2 Flow Rate FiO2 06/12/17 08:21 Room Air 06/12/17 08:13 37.0 80 18 115/74 (88) 95 Room Air 06/12/17 00:12 Room Air 06/11/17 23:05 36.9 80 17 123/67 (85) 97 Room Air 06/11/17 15:46 36.8 73 19 146/75 (98) 96 Room Air 06/11/17 15:18 Room Air 06/11/17 08:51 93 Room Air 06/11/17 08:47 36.6 66 16 154/76 (102) 93 Room Air Physical Exam Notes: General Appearance: Awake, alert & oriented, comfortable in general, NAD. CV: +S1S2 RRR, no murmur. No peripheral edema. 2+ bilateral DP pulses. Pulm: Clear to auscultation throughout. Abdomen: +BS, soft, non-tender, non-distended. Extremities: No pedal edema or calf tenderness. Left knee wound vac in place, dressing c/d/i without noted erythema at wound edges. Distal toe movement intact and non-painful. SCD's on. Neuro: No gross neuro deficits. Lines: Right arm PICC. Laboratory Results 06/11/17 10:09 06/11/17 10:09 Test 06/11/17 10:06/12/17 08:17 Red Blood Count 3.46 M/uL (4.2-5.4) Mean Corpuscular Volume 88.2 fL (80-100) Mean Corpuscular Hemoglobin 28.0 pg (25-34) Mean Corpuscular Hemoglobin Concent 31.8 g/dl (32-36) RDW Standard Deviation 52.3 fL (36.4-46.3) RDW Coefficient of Variation 16.2 % (11.5-14.5) Mean Platelet Volume 8.9 fL (7.4-10.4) Anion Gap 9.0 mmol/L (3-11) Est Creatinine Clear Calc Drug Dose 78.7 ml/min Estimated GFR () 101.0 Estimated GFR (Non- 87.2 BUN/Creatinine Ratio 11.6 (10-20) Calcium Level 8.2 mg/dl (8.5-10.1) Bedside Glucose 65 mg/dl (70-90) Assessment and Plan 72 yo female admitted on [id number] to the orthopedics service for a septic left knee with prior left TKA. PMH: HTN, HLD, T2DM, osteoporosis, chronic diarrhea, and GERD Septic left artificial knee: Orthopedics service as primary. S/p left knee I&D with poly exchange on . Pain control with oxycodone prn, morphine prn, and tylenol prn. aspiration cultures no growth (final). joint space cultures no growth to date. started vancomycin, transitioned to daptomycin on with planned weight-based (540 mg) daily dosing via PICC line (placed ) for six weeks. Hypokalemia: Last K 3.4, borderline, replenished. DM type 2 with hyperglycemia: HbA1c was 9.1. Holding metformin as inpatient. Currently on novolog and lantus. Monitoring. HTN: On home Metoprolol XL 25. Back on home lisinopril 20 mg after brief post- op hold. HLD: On home Lipitor 40. 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 On home Colestid 1 gm BID. Osteoporosis: On home Evista 60. GERD: At home on nexium. Here on Zantac 150 BID and protonix 40. Misc: UCx negative (final). Lyme negative. Code status: Full code Diet: DM2 with carb counting in general. DVT prophy: SCD's. PT/OT: Per ortho. Disbo: Per ortho (primary team). Suspect d/c later today. Resident Physician Supervision Note: I interviewed and examined the patient. Discussed with Dr. Corona and agree with findings and plan as documented in the note. Any exceptions or clarifications are listed here: None Patient is doing very well today she has got no complaints or problems Her hypertension and blood pressure of been in control her diabetes is 1 low value which she thinks is due to dietary changes from her usual home diet She is tolerating her IV daptomycin Is awake alert appropriate her knee is not typically tender her heart is regular lungs are clear Patient is discharged home with outpatient follow-up by orthopedics continue on intravenous daptomycin for a prosthetic knee infection with attention paid to her diabetes when she is home Documented By: Garett Lam Resident Tracking Resident Involvement: Resident Care Provided Care Provided: Adult Hospital Medicine (inpatient)
[2017-06-12] MEDS: DOCUSATE SODIUM 100 MG CAP PO SCH (09:00)
[2017-06-12] MEDS ORDERED: DAPTOmycin IV 540 MG in SODIUM CHLORIDE 0.9% 50ML 50 ML IV SCH (09:00)
[2017-06-12] MEDS: PANTOprazole SOD 40 MG TAB PO SCH (09:06)
[2017-06-12] MEDS: LISINOPRIL 20 MG TAB PO SCH (09:06)
[2017-06-12] MEDS: RALOXIFENE 60 MG TAB PO SCH (09:06)
[2017-06-12] MEDS: FERROUS GLUCONATE 324 MG TAB PO SCH ×2 (09:07→13:23)
[2017-06-12] MEDS: ASPIRIN 325 MG ECTAB PO SCH (09:07)
[2017-06-12] MEDS: RANITIDINE HCL 150 MG TAB PO SCH (09:07)
[2017-06-12] MEDS: METOPROLOL SUCC 25MG EXT REL TAB PO SCH (09:07)
[2017-06-12] MEDS: CYANOCOBALAMIN 500 MCG TAB (VIT B-12) PO SCH (09:07)
[2017-06-12] MEDS: INSULIN ASPART 100 UNITS/ML 3 ML PEN SC SCH ×2 (09:10→13:27)
[2017-06-12] MEDS: COLESTIPOL HCL 1 GM TAB PO SCH (10:56)
--- NOTE | 2017-06-12 13:15 | Orthopedic Progress Note ---
Orthopedic Progress Note Date of Service Jun 12, 2017. Subjective Post OP Day: 4 Reports: feeling well, pain controlled w PO medications, Denies: chest pain, SOB , nausea / vomiting, light headedness, calf pain Objective calves soft nontender, N/V intact, capillary refill less than 2 sec., dressing C /D/I (provena), A&O x3, toes mobile Date Time Temp Pulse Resp B/P (MAP) Pulse Ox O2 Delivery O2 Flow Rate FiO2 06/12/17 08:21 Room Air 06/12/17 08:13 37.0 80 18 115/74 (88) 95 Room Air 06/12/17 00:12 Room Air 06/11/17 23:05 36.9 80 17 123/67 (85) 97 Room Air 06/11/17 15:46 36.8 73 19 146/75 (98) 96 Room Air 06/11/17 15:18 Room Air Assessment & Plan Assessment: 72 yo female stable POD #4 s/p septic left TKA I&D, Plan: 1. Med management- PICC line in and started Dapto yesterday, tolerated well 2. DVT prophylaxis- ASA, SCDs 3. PT/OT 4. D/C planning- IV abx arranged for home and will be discharged today after dose Inhouse Planning Pain Management: PO Tylenol, Oxy IR DVT Prophylaxis: TEDs, SCDs, ASA Discharge Planning Discharge Planning: home with home health Pain Management: PO Tylenol, Oxy IR DVT Prophylaxis: TEDs, ASA Therapy: Physical Therapy
[2017-06-12] MEDS ORDERED: ACET-24 PO (13:20)
[2017-06-12] MEDS ORDERED: DAPT500I IV (13:20)
[2017-06-12] MEDS ORDERED: ASPEC325 PO (13:20)
[2017-06-12] MEDS ORDERED: RXC5 PO (13:20)
--- NOTE | 2017-06-12 13:22 | Discharge Instructions ---
Discharge Instructions Date of Service Jun 12, 2017. Admission Reason for Admission: Septic Joint Of Left Knee Joint Discharge Discharge Diagnosis / Problem: left TKA polyexchange Discharge Goals Goal(s): Decrease discomfort, Improve function, Increase independence, Therapeutic intervention Activity Recommendations Activity Limitations: per Instructions/Follow-up section . Instructions / Follow-Up Instructions / Follow-Up ACTIVITY RECOMMENDATIONS: SELF CARE INSTRUCTIONS AFTER TOTAL KNEE REPLACEMENT A. You may need to continue a physical therapy program after discharge from the hospital. There are several options available to you. Your doctor will assist you in selecting the best one for you. 1. An out-patient facility 2 to 3 times a week for therapy or home therapy. 2. Continue working on all exercises taught to you in the hospital. Your goals should be to increase bending of your knee to 90 degrees and beyond and to fully straighten your knee. B. You may progress at your own pace from walking with a walker or crutches to a cane; then to no assistive devices. C. Make walking a part of your daily routine. Be up as much as comfortable with rest periods throughout the day. Rest with leg elevation is very important. Use the ice wrap frequently for the first 3-4 weeks. D. There are no restrictions on activities. You may ride in a car, shop, participate in divorce lawyer and all social activities. E. Wear the long elastic stockings (YANA hose) 20 hours a day for 2 weeks after surgery. They can be removed several times a day for laundering and for a bath. F. You may shower, no tub baths until cleared by your doctor. SPECIAL CARE INSTRUCTIONS: VERY IMPORTANT TO READ AND REVIEW A. There are a few signs you need to watch for after you are home. Call [facility] if you notice any of the followin. Increased severe knee pain. Some pain is expected especially when you exercise. 2. Increased swelling in your leg or knee; pain or swelling of the calf muscle in either lower leg. 3. Any fluid drainage from the incision. 4. Shortness of breath or chest pain. B. Please call [facility] at if you have any concerns or questions about your operation or recovery. The doctor or his nurse will return your call promptly. C. You must take antibiotics before dental work, bladder, bowel or other surgery. Your doctor will provide you with a permanent care to carry describing this precaution. IMPORTANT: * REMEMBER TO TAKE ASPIRIN, 325 MG, TWICE DAILY FOR 4 WEEKS UNLESS OTHERWISE DIRECTED. THIS IS YOUR BLOOD THINNER. * HIGH RISK PATIENTS MAY BE PRESCRIBED A STRONGER BLOOD THINNER. THIS WILL BE PROVIDED AT DISCHARGE. * CALL IF INCREASED PAIN, REDNESS, DRAINAGE OR FEVER GREATER THAT 101. * WEAR YANA HOSE 20 HOURS PER DAY FOR 2 WEEKS. * Provena dressing in place IF INCISION IS LEAKING THROUGH DRESSING, CALL THE OFFICE . FOLLOW UP VISIT: If appointment is not already scheduled: Please call [facility] to make a follow-up appointment for 2 weeks after your surgery at . Current Hospital Diet Patient's current hospital diet: Diabetes Type 2 Diet Discharge Diet Recommended Diet: Diabetes Type 2 Diet Procedures Procedures Performed: I&D poly exvhange left total knee Pending Studies Studies pending at discharge: no Laboratory Results Hemoglobin A1c Test 04/27/17 08:35 Range/Units Estimated Average Glucose 214 mg/dl Hemoglobin A1c 9.1 H 4.5-5.6 % Medical Emergencies . Who to Call and When: Medical Emergencies: If at any time you feel your situation is an emergency, please call 911 immediately. . Non-Emergent Contact Non-Emergency issues call your: Primary Care Provider . "Provider Documentation" section prepared by Desiree Mc. . [place] Drug Monitoring Program Search Results: patient reviewed within database, no issues identified
[2017-06-12] MEDS: DAPTOmycin IV 550 MG in SYRINGE 0 ML IV SCH (13:23)
[2017-06-12 13:57] VITALS: BP 115/74; PULSE 80; TEMP 37; O2SAT 95
--- NOTE | 2017-06-14 14:08 | DISCHARGE SUMMARY ---
DISCHARGE DIAGNOSIS: Septic left total knee arthroplasty. SECONDARY DIAGNOSES: Hypertension, hyperlipidemia, type 2 diabetes mellitus, GERD, chronic diarrhea, osteoporosis. CONSULTS: Nadia Johnson PA-C/Ryne Corbin MD COMPLICATIONS: None. PROCEDURES: Irrigation and debridement and polyethylene bearing change, left total knee by Dr. Hay on 06/09/2017. BRIEF HISTORY: As dictated in the history and physical. HOSPITAL SUMMARY: The patient was admitted on the above-noted date with the above-noted suspected septic left knee[facility] and postoperative medical coverage. Dr. Dioni Flynn was consulted for an ID consult to help with antibiotic choice post-washout. The patient was taken to the operating room on 06/09/2017 and the above-noted procedure was performed, which she tolerated well. On her first postoperative day, she was feeling well and had no complaints. Calves were soft and nontender. Neurovascularly intact. Dressings were clean, dry and intact. Toes were mobile. Vital signs were stable. She was afebrile and hemoglobin was 9.6. She was started on physical therapy protocol, continued on IV antibiotics and we did follow cultures at this point in time, and was continued on medical management per [facility] service. By her second postoperative day, she was feeling well. Neurovascularly, she was intact. Dressings were intact. Toes were mobile. Vital signs were stable and she was afebrile. A PICC line had been ordered and plans were to await Dr. Flynn's final recommendations for home IV antibiotics. She was continued on a PT protocol and continuing IV antibiotics as per ID team. The rest of her stay was essentially uneventful and by 06/12/2017, she was feeling well and had no complaints. Prevena dressing was intact. Toes were mobile. Calves were soft and nontender. Neurovascularly intact. Vital signs were stable. She was afebrile. Daptomycin was chosen for the antibiotic of choice for [address] Flynn. She was otherwise remaining stable. On her last day of physical therapy, she was doing 72 degrees of flexion and had ambulated 160 feet. She had gone up and down 3 steps and was tolerating well. She was otherwise remaining medically stable and orthopedically stable and it was felt that she could be discharged home. For further review, please see chart. LABORATORY AND X-RAY DATA: As per chart. DISCHARGE INSTRUCTIONS: The patient was discharged to home in satisfactory condition on 06/12/2017. DIET: Diabetic. ACTIVITY: Follow TKA instruction sheets and special care instructions as noted. The patient is to follow up with Dr. Hay in 2 weeks. The patient is to call for an appointment if one has not been made for you. Also, patient is to follow up with Dr. Flynn in 2 weeks. The patient is to call for an appointment arranged to see him at that point in time. DISCHARGE MEDICATIONS: Acetaminophen 1000 mg p.o. q. 8 hours p.r.n., aspirin 325 mg p.o. b.i.d., daptomycin 540 mg IV for 42 days, oxycodone 5-10 mg p.o. q. 4 hours p.r.n. Resume home meds as listed. MTDD
== END 2017-06-12 14:15 | disposition home health service (06) | DRG 465 ==
LOC: EDBD 09:19 → C.EDB 09:20 → C.MSN 13:24 → EDBEDREQ 13:29 → ENRESERV 13:36
PROC: 0Y9 Anatomical Regions, Lower Extremities, Drainage (ICD-10-PCS; principal; 2017-06-08)
PROC: 0SPD09Z Removal of Liner from Left Knee Joint, Open Approach (ICD-10-PCS; 2017-06-09 07:15)
PROC: 0SUV09Z Supplement Right Knee Joint, Tibial Surface with Liner, Open Approach (ICD-10-PCS; 2017-06-09 07:15)
PROC: 3E0U029 Introduction of Other Anti-infective into Joints, Open Approach (ICD-10-PCS; 2017-06-09 07:15)
DX: T84.54XA Infection and inflammatory reaction due to internal left knee prosthesis, initial encounter (principal); E11.65 Type 2 diabetes mellitus with hyperglycemia; I10 Essential (primary) hypertension; E78.5 Hyperlipidemia, unspecified; K21.9 Gastro-esophageal reflux disease without esophagitis; R19.7 Diarrhea, unspecified; M81.0 Age-related osteoporosis without current pathological fracture; Z79.4 Long term (current) use of insulin; Z79.84 Long term (current) use of oral hypoglycemic drugs; Z79.899 Other long term (current) drug therapy; Z96.653 Presence of artificial knee joint, bilateral; Y79.2 Prosthetic and other implants, materials and accessory orthopedic devices associated with adverse incidents; Y83.1 Surgical operation with implant of artificial internal device as the cause of abnormal reaction of the patient, or of later complication, without mention of misadventure at the time of the procedure; Z88.0 Allergy status to penicillin; Z91.040 Latex allergy status; Z83.3 Family history of diabetes mellitus

== ENCOUNTER → 2017-06-14 | Outpatient (CLI) | payer OTHER ==
[~2017-06-14] MED LIST changes: +ACET-24 PO; +ASPEC325 PO; +COLE1TAB PO; +DAPT500I IV; -INSDGI SC; +INSU1INJ33 SQ; -INSUINJ14 SQ; -MAGN400T6 PO; +METF-384 PO; +NVLG SQ; +RXC5 PO; +VITACAP26 PO
[2017-06-14 17:54] LABS: HEMATOCRIT 29.9 % (37-47); HEMOGLOBIN 9.3 g/dL (12.0-16.0); MEAN CORPUSCULAR HEMOGLOBIN 27.7 pg (25-34); MEAN CORPUSCULAR HGB CONC 31.1 g/dl (32-36); MEAN PLATELET VOLUME 9.4 fL (7.4-10.4); PLATELET COUNT 348 K/uL (130-400); RED CELL DISTRIBUTION WIDTH SD 52.3 fL (36.4-46.3); WHITE BLOOD COUNT 8.29 K/uL (4.8-10.8)
[2017-06-14 18:33] LABS: ALBUMIN 2.9 gm/dl (3.4-5.0); ALT/SGPT 20 U/L (12-78); AST/SGOT 18 U/L (15-37); BLOOD UREA NITROGEN 9 mg/dl (7-18); CALCIUM 8.4 mg/dl (8.5-10.1); CARBON DIOXIDE 26 mmol/L (21-32); CREATININE 0.64 mg/dl (0.60-1.20); GLUCOSE 144 mg/dl (70-99); POTASSIUM 3.2 mmol/L (3.5-5.1); SODIUM 141 mmol/L (136-145)
[2017-06-14 18:35] LABS: ALKALINE PHOSPHATASE 73 U/L (45-117); TOTAL PROTEIN 6.6 gm/dl (6.4-8.2)
== END | disposition home or self-care (01) ==
LOC: C.LABSPEC 12:49
PROVIDERS: ATTEND Internal Medicine Infectious Disease
DX: M00.862 Arthritis due to other bacteria, left knee (principal)

== ENCOUNTER → 2017-06-21 | Outpatient (CLI) | payer OTHER ==
[2017-06-21 13:00] LABS: HEMATOCRIT 34.7 % (37-47); HEMOGLOBIN 10.6 g/dL (12.0-16.0); MEAN CELL VOLUME 89.7 fL (80-100); MEAN CORPUSCULAR HEMOGLOBIN 27.4 pg (25-34); MEAN CORPUSCULAR HGB CONC 30.5 g/dl (32-36); MEAN PLATELET VOLUME 9.7 fL (7.4-10.4); PLATELET COUNT 466 K/uL (130-400); RED CELL DISTRIBUTION WIDTH CV 16.3 % (11.5-14.5); RED CELL DISTRIBUTION WIDTH SD 53.4 fL (36.4-46.3); WHITE BLOOD COUNT 9.55 K/uL (4.8-10.8)
[2017-06-21 14:13] LABS: ALBUMIN 3.2 gm/dl (3.4-5.0); ALT/SGPT 21 U/L (12-78); AST/SGOT 25 U/L (15-37); BLOOD UREA NITROGEN 16 mg/dl (7-18); CALCIUM 8.7 mg/dl (8.5-10.1); CARBON DIOXIDE 23 mmol/L (21-32); CREATININE 0.63 mg/dl (0.60-1.20); GLUCOSE 135 mg/dl (70-99); SODIUM 137 mmol/L (136-145)
[2017-06-21 14:16] LABS: ALKALINE PHOSPHATASE 76 U/L (45-117)
== END | disposition home or self-care (01) ==
LOC: C.LABSPEC 18:08
PROVIDERS: ATTEND Internal Medicine Infectious Disease
DX: T84.54XA Infection and inflammatory reaction due to internal left knee prosthesis, initial encounter (principal); X58.XXXA Exposure to other specified factors, initial encounter

== ENCOUNTER → 2017-07-13 | Outpatient (CLI) | payer OTHER ==
[2017-07-13 18:10] LABS: HEMOGLOBIN 11.6 g/dL (12.0-16.0); MEAN CELL VOLUME 88.5 fL (80-100); MEAN CORPUSCULAR HEMOGLOBIN 28.5 pg (25-34); MEAN CORPUSCULAR HGB CONC 32.2 g/dl (32-36); PLATELET COUNT 416 K/uL (130-400); RED CELL DISTRIBUTION WIDTH SD 51.9 fL (36.4-46.3); WHITE BLOOD COUNT 13.76 K/uL (4.8-10.8)
[2017-07-13 18:46] LABS: ALBUMIN 3.4 gm/dl (3.4-5.0); ALT/SGPT 28 U/L (12-78); AST/SGOT 22 U/L (15-37); BLOOD UREA NITROGEN 24 mg/dl (7-18); CALCIUM 8.8 mg/dl (8.5-10.1); CARBON DIOXIDE 23 mmol/L (21-32); CREATININE 0.82 mg/dl (0.60-1.20); GLUCOSE 166 mg/dl (70-99); POTASSIUM 4.1 mmol/L (3.5-5.1); SODIUM 136 mmol/L (136-145)
[2017-07-13 18:49] LABS: ALKALINE PHOSPHATASE 101 U/L (45-117); TOTAL PROTEIN 7.5 gm/dl (6.4-8.2)
== END | disposition home or self-care (01) ==
LOC: C.LABSPEC 18:07
PROVIDERS: ATTEND Internal Medicine Infectious Disease
DX: T84.54XA Infection and inflammatory reaction due to internal left knee prosthesis, initial encounter (principal); X58.XXXA Exposure to other specified factors, initial encounter